=== PATIENT | female | born 1935 | race African-American/Black ===

== ENCOUNTER 2020-03-20 12:36 | Inpatient (IN) | payer MEDICARE, MEDICAID ==
[~2020-03-20] VITALS: Ht 160 cm; Wt 67.1 kg
[2020-03-20 12:40] VITALS: BP 129/75
[2020-03-20] MEDS ORDERED: Azithromycin 500 MG in NS 275 ML IV ONE (13:00)
[2020-03-20] MEDS ORDERED: cefTRIAXone 1 GM in NS 55 ML IV ONE (13:30)
[2020-03-20] MEDS ORDERED: Ipratropium 0.02% Inh Soln 2.5ml UD HHN ONE (13:30)
[2020-03-20] MEDS ORDERED: Vancomycin 1 GM in NS 275 ML IVPB ONE (13:30)
[2020-03-20] MEDS ORDERED: dexAMETHasone 10mg/ml Inj IV ONE (13:30)
[2020-03-20 13:46] LABS: HEMATOCRIT 38.8 % (37.0-47.0); HEMOGLOBIN 12.4 G/DL (12.0-16.0); MEAN CORPUSCULAR VOLUME 98 FL (80-99); PLATELET COUNT 262 K/UL (150-450); RED BLOOD COUNT 3.96 M/UL (4.20-5.40); RED CELL DISTRIBUTION WIDTH 14.4 % (11.6-14.8); WHITE BLOOD COUNT 17.9 K/UL (4.8-10.8)
--- NOTE | 2020-03-20 13:53 | Emergency Room Report ---
History of Present Illness General Chief Complaint: Dyspnea/Respdistress Source: Patient, EMS Present Illness HPI Patient brought via paramedics for hypoxia. Her O2 saturation was 90% and when she was placed on a nonrebreather mask it went up to 97% patient denies fevers or chills. She is a history of asthma. She has been wheezing. She denies nausea but vomited 1 time in the emergency department. She denies chest pain or pain throughout her body. She has been coughing up phlegm but there is been no color. Patient is unaware of exposure to Covid positive contacts but she is at a detention facility. No sore throat, palpitations, diarrhea, dysuria, joint pain, anxiety, visual changes, dizziness, headache. Patient states she is unable to urinate. Medical problems from detention facility records: Gout, hypertension, diabetes. As above she says she has asthma although it is listed as COPD. Allergies: Coded Allergies: PENICILLINS (Verified Allergy, Unknown, 03/20/20) RIFAXIMIN (Verified Allergy, Unknown, 03/20/20) SHELLFISH DERIVED (Verified Allergy, Unknown, 03/20/20) COVID-19 Screening Contact w/high risk pt: No Experienced COVID-19 symptoms?: No COVID-19 Testing performed WASH TANK TENDER: No Patient History Past Medical History: see triage record, old chart reviewed, asthma Social History: Denies: smoking Social History Narrative longterm facility DNR Reviewed Nursing Documentation: PMH: Agreed; PSxH: Agreed Nursing Documentation-PMH Hx Hypertension: Yes Hx Diabetes: Yes Review of Systems All Other Systems: negative except mentioned in HPI Physical Exam Vital Signs Date Time Temp Pulse Resp B/P (MAP) Pulse Ox O2 Delivery O2 Flow Rate FiO2 03/20/20 12:36 98.2 110 22 128/65 (86) 96 Simple Mask 10.0 Sp02 EP Interpretation: reviewed, abnormal - Interpreted as low by me General Appearance: alert, non-toxic, mild distress, Chronically Ill Head: normocephalic, atraumatic Eyes: bilateral eye normal inspection, bilateral eye PERRL, bilateral eye EOMI ENT: moist mucus membranes Neck: full range of motion, supple, no meningismus Respiratory: no retraction, rales, wheezing Cardiovascular #1: no edema, tachycardia Cardiovascular #2: 2+ radial (R) Gastrointestinal: non tender, soft, decreased bowel sounds Genitourinary: no CVA tenderness Musculoskeletal: back normal, no calf tenderness Neurologic: oriented - X2, DTRs symmetric, sensory intact, motor weakness - Generalized Psychiatric: mood/affect normal Skin: no rash, warm/dry Procedures Critical Care Time Critical Care Time Total Critical Care Time: 45 min bedside evaluation and treatment excludes procedures (EKG). Reason for critical care: hypoxia, sepsis, bronchospasm, repeat evaluations Possible complications: hypotension, hypertension, DE, shock, arrhythmias, metabolic acidosis, end organ damage, respiratory failure. Interventions: fluids, oxygen, albuterol/atrovent, antibiotics, repeat evaluations, repeat fluid administration Course: Patient presents with hypoxia and wheezing. Fluids and antibiotics ordered. Covid neg and breathing treatments administered with improvement. Elevated lactate. Rebolus. Patient reevaluated and improved after breathing treatments. Still requiring oxygen. Vital signs without hypotension. Contacted admitting physician. Patient improved and admitted to the hospital. Elevated lactate. Fluid bolus ordered. Antibiotics broadened by admitting instructional systems design consultant. Consultations: nursing staff, EMS, respiratory therapy Performed by: Dr. Quiros Tolerated well condition = serious Medical Decision Making Diagnostic Impression: Primary Impression: Hypoxia Additional Impressions: Bronchospasm Sepsis Qualified Codes: A41.9 - Sepsis, unspecified organism; R65.20 - Severe sepsis without septic shock UTI (urinary tract infection) Qualified Codes: N39.0 - Urinary tract infection, site not specified Elevated lactic acid level ER Course Patient brought by EMS for hypoxia and respiratory distress. Differential includes acute myocardial infarction, COVID-19, pneumonia, sepsis, other occult infection, pulmonary embolus, exacerbation of asthma and COPD amongst others. Complex patient with comorbidities. Evaluation with EKG, chest x-ray and labs. Patient treated with IV hydration, oxygen and breathing treatments ordered as the patient is wheezing. Covid testing performed. Due to hypoxia and physical exam antibiotics ordered. In addition dexamethasone ordered. EKG sinus tachycardia with right bundle branch block no acute injury. Chest x- ray dense right-sided infiltrate with effusion. Labs with elevated white count and left shift. CMP with elevated glucose. Urinalysis with too numerous to count white blood cells. Found Lactic acid 5. Rest of 30 ml/kg bolus given. Antibiotics already ordered. Patient also with UTI. Sepsis re-evaluation 1520 Improved. Called to have reflex lactate sent. Lactate increased. Fluid bolus ordered. Laboratory Tests Test 03/20/20 13:30 03/20/20 14:00 03/20/20 21:55 White Blood Count 17.9 K/UL (4.8-10.8) H Red Blood Count 3.96 M/UL (4.20-5.40) L Hemoglobin 12.4 G/DL (12.0-16.0) Hematocrit 38.8 % (37.0-47.0) Mean Corpuscular Volume 98 FL (80-99) Mean Corpuscular Hemoglobin 31.4 PG (27.0-31.0) H Mean Corpuscular Hemoglobin Concent 32.0 G/DL (32.0-36.0) Red Cell Distribution Width 14.4 % (11.6-14.8) Platelet Count 262 K/UL (150-450) Mean Platelet Volume 7.5 FL (6.5-10.1) Neutrophils (%) (Auto) % (45.0-75.0) Lymphocytes (%) (Auto) % (20.0-45.0) Monocytes (%) (Auto) % (1.0-10.0) Eosinophils (%) (Auto) % (0.0-3.0) Basophils (%) (Auto) % (0.0-2.0) Differential Total Cells Counted 100 Neutrophils % (Manual) 83 % (45-75) H Lymphocytes % (Manual) 4 % (20-45) L Monocytes % (Manual) 8 % (1-10) Eosinophils % (Manual) 0 % (0-3) Basophils % (Manual) 0 % (0-2) Band Neutrophils 5 % (0-8) Platelet Estimate Adequate Platelet Morphology Normal Red Blood Cell Morphology Normal Prothrombin Time 11.4 SEC (9.30-11.50) Prothrombin Time INR 1.0 (0.9-1.1) Activated Partial Thromboplast Time 26 SEC (23-33) D-Dimer 0.53 mg/L FEU (0.00-0.49) H Sodium Level 140 MMOL/L (136-145) Potassium Level 4.2 MMOL/L (3.5-5.1) Chloride Level 101 MMOL/L (98-107) Carbon Dioxide Level 30 MMOL/L (21-32) Anion Gap 10 mmol/L (5-15) Blood Urea Nitrogen 18 mg/dL (7-18) Creatinine 0.7 MG/DL (0.55-1.30) Estimated Glomerular Filtration Rate > 60 mL/min (>60) Glucose Level 208 MG/DL (74-106) H Lactic Acid Level 5.00 mmol/L (0.4-2.0) H 6.90 mmol/L (0.4-2.0) H Calcium Level 9.9 MG/DL (8.5-10.1) Magnesium Level 1.5 MG/DL (1.8-2.4) L Ferritin 1127 NG/ML (8-388) H Total Bilirubin 0.4 MG/DL (0.2-1.0) Aspartate Amino Transferase (AST) 20 U/L (15-37) Alanine Aminotransferase (ALT) 41 U/L (12-78) Alkaline Phosphatase 73 U/L (46-116) Lactate Dehydrogenase 154 U/L (81-234) Total Creatine Kinase 12 U/L (26-308) L Troponin I 0.000 ng/mL (0.000-0.056) C-Reactive Protein, Quantitative 3.7 mg/dL (0.00-0.90) H Pro-B-Type Natriuretic Peptide 102 pg/mL (0-125) Total Protein 7.4 G/DL (6.4-8.2) Albumin 3.3 G/DL (3.4-5.0) L Globulin 4.1 g/dL Albumin/Globulin Ratio 0.8 (1.0-2.7) L Lipase 50 U/L (73-393) L Urine Color Pale yellow Urine Appearance Very cloudy Urine pH 7 (4.5-8.0) Urine Specific Heidrick 1.010 (1.005-1.035) Urine Protein 2+ (NEGATIVE) H Urine Glucose (UA) 1+ (NEGATIVE) H Urine Ketones 2+ (NEGATIVE) H Urine Blood 3+ (NEGATIVE) H Urine Nitrite Negative (NEGATIVE) Urine Bilirubin Negative (NEGATIVE) Urine Urobilinogen Normal MG/DL (0.0-1.0) Urine Leukocyte Esterase 3+ (NEGATIVE) H Urine RBC Tntc /HPF (0 - 2) H Urine WBC Tntc /HPF (0 - 2) H Urine Squamous Epithelial Cells None /LPF (NONE/OCC) Urine Bacteria Many /HPF (NONE) H Microbiology Date/Time Source Procedure Growth Status 03/20/20 12:35 Nasopharynx SARS-CoV-2 RdRp Gene Assay - Final Complete EKG Diagnostic Results Rate: tachycardiac Rhythm: NSR ST Segments: no acute changes - Right bundle branch block Rhythm Strip Diag. Results EP Interpretation: yes Rhythm: no PVC's, no ectopy, other - Sinus tachycardia Chest X-Ray Diagnostic Results Chest X-Ray Diagnostic Results : Chest X-Ray Ordered: Yes # of Views/Limited/Complete: 1 View Indication: Shortness of Breath EP Interpretation: Yes Interpretation: no effusion, no pneumothorax, other - Elevated right hemidiaphragm and probable bilateral infiltrates with R effusion Impression: Other Electronically Signed by: Electronically signed by Piotr Quiros MD Last Vital Signs Date Time Temp Pulse Resp B/P (MAP) Pulse Ox O2 Delivery O2 Flow Rate FiO2 03/20/20 18:00 108 18 137/78 100 Nasal Cannula 4.0 03/20/20 14:07 100 03/20/20 12:40 98.6 Status: improved Disposition: ADMITTED INPATIENT Condition: Serious Referrals: NON PHYSICIAN (PCP) Piotr Quiros MD Mar 20, 2020 13:53
[2020-03-20] MEDS: Albuterol ud Inhalation HHN PRN ×2 (13:58→13:59)
--- NOTE | 2020-03-20 14:02 | Diagnostic Imaging Report ---
EXAM: XR Chest, 1 View CLINICAL HISTORY: DYSPNEA TECHNIQUE: Frontal view of the chest. COMPARISON: No relevant prior studies available. FINDINGS: Lungs: Opacification of large portion of the right hemithorax. Rightward deviation of the mediastinum and heart likely due to volume loss of the right lung. Interstitial and mild airspace opacities bilaterally. More focal round opacity in the left upper lung. Pleural space: Large right pleural effusion. No pneumothorax. Heart: Unremarkable. No cardiomegaly. Mediastinum: See above. Bones/joints: Evidence of right shoulder surgery. IMPRESSION: 1. Opacification of large portion of the right hemithorax. Rightward deviation of the mediastinum and heart likely due to volume loss of the right lung. Large right pleural effusion. 2. Interstitial and mild airspace opacities bilaterally. More focal round opacity in the left upper lung, cannot exclude mass. Consider CT chest.
[2020-03-20 14:18] LABS: ANION GAP 10 mmol/L (5-15); BLOOD UREA NITROGEN 18 mg/dL (7-18); CALCIUM 9.9 MG/DL (8.5-10.1); CARBON DIOXIDE 30 MMOL/L (21-32); CHLORIDE 101 MMOL/L (98-107); CREATININE 0.7 MG/DL (0.55-1.30); POTASSIUM 4.2 MMOL/L (3.5-5.1); SODIUM 140 MMOL/L (136-145)
[2020-03-20 14:23] LABS: ALANINE AMINOTRANSFERASE 41 U/L (12-78); ALBUMIN 3.3 G/DL (3.4-5.0); ALBUMIN/GLOBULIN RATIO 0.8 (1.0-2.7); ALKALINE PHOSPHATASE 73 U/L (46-116); ASPARTATE AMINO TRANSFERASE 20 U/L (15-37); BILIRUBIN,TOTAL 0.4 MG/DL (0.2-1.0); CREATINE KINASE 12 U/L (26-308); FERRITIN 1127 NG/ML (8-388); LACTATE DEHYDROGENASE 154 U/L (81-234)
[2020-03-20 14:41] LABS: APPEARANCE,URINE VERY CLOUDY; BILIRUBIN, URINE NEGATIVE (NEGATIVE); COLOR,URINE PALE YELLOW; GLUCOSE, URINE (UA) 1+ (NEGATIVE); KETONES,URINE 2+ (NEGATIVE); LEUKOCYTE ESTERASE ,URINE 3+ (NEGATIVE); NITRITE,URINE NEGATIVE (NEGATIVE); PH,URINE 7 (4.5-8.0); PROTEIN,URINE 2+ (NEGATIVE); UROBILINOGEN,URINE NORMAL MG/DL (0.0-1.0)
[2020-03-20] MEDS ORDERED: ACETAMINOPHEN325 M1 ORAL (15:13)
[2020-03-20] MEDS ORDERED: AMLODIPINE BESY10 MG ORAL (15:13)
[2020-03-20] MEDS ORDERED: GLUCOPHAGE XR750 MG ORAL (15:13)
[2020-03-20] MEDS ORDERED: IPOL IJ (15:13)
[2020-03-20] MEDS ORDERED: COLCRYS0.6 M1 PO (15:13)
[2020-03-20] MEDS ORDERED: DOCUSATE SODIU100 MG ORAL (15:13)
[2020-03-20] MEDS ORDERED: MIRTAZAPINE7.5 MG ORAL (15:25)
[2020-03-20] MEDS ORDERED: MAGNESIUM OXID400 M1 ORAL (15:25)
[2020-03-20] MEDS ORDERED: LEVOTHYROXINE125 MCG ORAL (15:25)
[2020-03-20] MEDS ORDERED: LEVOFLOXACIN250 MG ORAL (15:25)
[2020-03-20] MEDS ORDERED: LANTUS SOL100 UNIT/1 SUBQ (15:25)
[2020-03-20] MEDS ORDERED: MULTIVITAMINS1 EAC8 ORAL (15:25)
[2020-03-20] MEDS ORDERED: Miralax 17gm pkt ORAL PRN (16:45)
[2020-03-20] MEDS ORDERED: LORazepam Inj 2mg/ml 1ml IV PRN (16:45)
[2020-03-20] MEDS ORDERED: Promethazine/Codeine 5ml UD ORAL PRN (16:45)
[2020-03-20 18:00] VITALS: BP 137/78
[2020-03-20] MEDS ORDERED: Heparin 5000 units/ml inj SUBQ SCH (21:00)
[2020-03-20 22:00] VITALS: BP 128/70
[2020-03-20] MEDS ORDERED: Vancomycin 1 GM in D5W 275 ML IV SCH (23:00)
[2020-03-21] VITALS (7 sets, daily range): BP systolic 125–137; BP diastolic 60–82
[2020-03-21] MEDS: NovoLOG Insulin Flexpen SUBQ SCH ×4 (07:00→20:57)
[2020-03-21] MEDS: Vancomycin 500mg/D5W 110ml IVPB SCH ×4 (08:26→18:00)
[2020-03-21] MEDS: Cefepime HCl 2 GM in D5W 110 ML IV SCH (09:12)
[2020-03-21] MEDS: Albuterol/Ipratropium 3ml neb HHN PRN ×2 (12:56→23:38)
--- NOTE | 2020-03-21 16:35 | Consultation ---
History of Present Illness General Date patient seen: Mar 21, 2020 Chief Complaint: Dyspnea/Respdistress Present Illness HPI 85 year old female with hx of dementia, HTN, COPD, DM, [facility] from [facility] for hypoxia. Her O2 saturation was 90% on RA and She has been wheezing. She vomited 1 time in the emergency department. She denies chest pain or pain throughout her body. She has been coughing up phlegm. Her CXR showed extensive opacification at [facility]. She is admitted for further management. Allergies: Coded Allergies: PENICILLINS (Verified Allergy, Unknown, 03/20/20) RIFAXIMIN (Verified Allergy, Unknown, 03/20/20) SHELLFISH DERIVED (Verified Allergy, Unknown, 03/20/20) Medication History Scheduled Amlodipine Besylate* (Amlodipine Besylate*), 10 MG ORAL DAILY, (Reported) Docusate Sodium* (Docusate Sodium*), 200 MG ORAL TWICE A DAY, (Reported) Insulin Glargine (Lantus), 12 SUBQ BEDTIME, (Reported) Levofloxacin (Levofloxacin*), 250 MG ORAL DAILY, (Reported) Levothyroxine Sodium* (Levothyroxine Sodium*), 50 MCG ORAL DAILY, (Reported) Magnesium Oxide (Magnesium Oxide), 400 MG ORAL DAILY, (Reported) Mirtazapine* (Mirtazapine*), 7.5 MG ORAL BEDTIME, (Reported) Multivitamin With Minerals (Multivitamins With Minerals*), 1 TAB ORAL DAILY, (Reported) Poliomyelitis Vaccine, Killed (Ipol), 5 ML IJ Q6HR, (Reported) Scheduled PRN Acetaminophen* (Acetaminophen 325MG Tablet*), 650 MG ORAL Q6H PRN for fever/pain, (Reported) Metformin Hcl (Glucophage Xr), 750 MG ORAL TWICE A DAY PRN for DM, (Reported) Miscellaneous Medications Colchicine (Colcrys), 0.6 MG PO, (Reported) Patient History Healthcare decision maker N Resuscitation status Advanced Directive on File Past Medical/Surgical History Past Medical/Surgical History: (1) History of hypertension (2) Diabetes mellitus (3) Gout (4) Hypothyroidism (5) COPD (chronic obstructive pulmonary disease) (6) Alzheimer's dementia Review of Systems All Other Systems: negative except mentioned in HPI Physical Exam General Appearance: thin Lines, tubes and drains: peripheral HEENT: normocephalic, atraumatic Neck: non-tender, normal alignment Respiratory/Chest: rhonchi - left, rhonchi - right Abdomen: normal bowel sounds, non tender Genitourinary/Rectal: normal genital exam Extremities: normal range of motion Last 24 Hour Vital Signs Date Time Temp Pulse Resp B/P (MAP) Pulse Ox O2 Delivery O2 Flow Rate FiO2 03/21/20 12:58 92 29 100 Room Air 21 102 23 100 03/21/20 10:29 98.0 87 19 132/82 98 Nasal Cannula 4.0 03/21/20 09:24 Nasal Cannula 4.0 03/21/20 09:12 97 134/87 03/21/20 07:24 98.0 94 16 137/75 99 Nasal Cannula 4.0 03/21/20 02:00 98.0 96 18 132/74 100 Nasal Cannula 4.0 100 03/20/20 22:00 98.4 105 18 128/70 98 Nasal Cannula 4.0 100 03/20/20 18:00 108 18 137/78 100 Nasal Cannula 4.0 Intake and Output 03/20/20 03/21/20 19:00 07:00 Intake Total 1000 ml Balance 1000 ml Intake IV Total 1000 ml Laboratory Tests Test 03/20/20 21:55 03/21/20 07:23 Lactic Acid Level 6.90 mmol/L (0.4-2.0) H POC Whole Blood Glucose 116 MG/DL (74-106) H Height (Feet): 5 Height (Inches): 3.00 Weight (Pounds): 148 Medications Current Medications Medications (Trade) Dose Ordered Sig/Federico Route PRN Reason Start Time Stop Time Status Last Admin Dose Admin Acetaminophen (Tylenol) 650 mg Q4H PRN ORAL FEVER 03/20/20 16:45 04/19/20 16:44 Albuterol/ Ipratropium (Albuterol/ Ipratropium) 3 ml Q4H PRN HHN Shortness of Breath 03/20/20 16:45 03/25/20 16:44 03/21/20 12:56 Amlodipine Besylate (Norvasc) 10 mg DAILY ORAL 03/21/20 09:00 04/20/20 08:59 03/21/20 09:12 Cefepime HCl 2 gm/ Dextrose 110 ml @ 220 mls/hr Q24H IV 03/21/20 09:00 03/28/20 08:59 03/21/20 09:12 Dextrose (Dextrose 50%) 25 ml Q30M PRN IV Hypoglycemia 03/20/20 16:45 06/18/20 16:44 Dextrose (Dextrose 50%) 50 ml Q30M PRN IV Hypoglycemia 03/20/20 16:45 06/18/20 16:44 Heparin Sodium (Porcine) (Heparin 5000 units/ml) 5,000 units EVERY 12 HOURS SUBQ 03/20/20 21:00 05/04/20 20:59 03/21/20 08:37 Insulin Aspart (NovoLOG) BEFORE MEALS AND HS SUBQ 03/21/20 06:30 06/19/20 06:29 Levothyroxine Sodium (Synthroid) 50 mcg ACBREAKFAST ORAL 03/21/20 06:30 04/20/20 06:29 03/21/20 08:17 Lorazepam (Ativan 2mg/ml 1ml) 2 mg Q2H PRN IV For Anxiety 03/20/20 16:45 03/27/20 16:44 Mirtazapine (Remeron) 7.5 mg BEDTIME ORAL 03/20/20 21:00 06/18/20 20:59 Ondansetron HCl (Zofran) 4 mg Q6H PRN IVP Nausea & Vomiting 03/20/20 16:45 04/19/20 16:44 Polyethylene Glycol (Miralax) 17 gm DAILYPRN PRN ORAL Constipation 03/20/20 16:45 04/19/20 16:44 Promethazine HCl/ Codeine (Phenergan with Codeine) 5 ml Q4H PRN ORAL For Cough 03/20/20 16:45 04/19/20 16:44 Sodium Chloride 1,000 ml @ 50 mls/hr Q20H IV 03/20/20 23:00 04/19/20 22:59 03/21/20 04:47 Sodium Chloride 1,000 ml @ 150 mls/hr Q6H40M IV 03/21/20 01:45 04/20/20 01:44 03/21/20 15:27 Sodium Chloride 1,000 ml @ 200 mls/hr Q5H IV 03/20/20 15:30 04/19/20 15:29 03/21/20 11:39 Vancomycin HCl (Vanco pharmacy to dose) 1 ea DAILY PRN MISC . 03/21/20 10:45 04/20/20 10:44 Vancomycin HCl 500 mg/Dextrose 110 ml @ 110 mls/hr Q12H IVPB 03/21/20 06:00 03/26/20 05:59 03/21/20 08:26 Assessment/Plan Problem List: (1) Nosocomial pneumonia ICD Codes: J18.9 - Pneumonia, unspecified organism; Y95 - Nosocomial condition SNOMED: 665441297 (2) Sepsis ICD Codes: A41.9 - Sepsis, unspecified organism SNOMED: 05425209 Qualifiers: Qualified Codes: A41.9 - Sepsis, unspecified organism; R65.20 - Severe sepsis without septic shock (3) UTI (urinary tract infection) ICD Codes: N39.0 - Urinary tract infection, site not specified SNOMED: 56381666 Qualifiers: Qualified Codes: N39.0 - Urinary tract infection, site not specified (4) History of hypertension ICD Codes: Z86.79 - Personal history of other diseases of the circulatory system SNOMED: 889395075 (5) Diabetes mellitus ICD Codes: E11.9 - Type 2 diabetes mellitus without complications SNOMED: 28002365 (6) Gout ICD Codes: M10.9 - Gout, unspecified SNOMED: 77546919 (7) Hypothyroidism ICD Codes: E03.9 - Hypothyroidism, unspecified SNOMED: 22330944 (8) Alzheimer's dementia ICD Codes: G30.9 - Alzheimer's disease, unspecified; F02.80 - Dementia in other diseases classified elsewhere without behavioral disturbance SNOMED: 99764012 (9) COPD (chronic obstructive pulmonary disease) ICD Codes: J44.9 - Chronic obstructive pulmonary disease, unspecified SNOMED: 83071620 Assessment/Plan: respiratory isolation chest PT repeat CXR in am broad spectrum antibiotics check sputum resume routine meds symptomatic treatment DVT prophylaxis Pt should be DNR considering severity of her pneumonia and her age. Jessenia Biggs MD Mar 21, 2020 16:35
--- NOTE | 2020-03-21 19:32 | History & Physical ---
History and Physical History & Physicial Dictated for Int Med-DR Munguia no.[id number]. Peterson Palacios MD Mar 21, 2020 19:32
--- NOTE | 2020-03-21 20:14 | History and Physical Report ---
DATE OF ADMISSION: 03/20/2020 CHIEF COMPLAINT: The patient is an 85-year-old female who presents with a chief complaint of shortness of breath. HISTORY OF PRESENT ILLNESS: The patient is a resident of [facility]. The patient herself is unable to contribute much to the history and physical. Most of the history and physical is obtained from the medical record. According to staff at [facility], the patient has a history of COPD. The patient was found to be wheezing on March 20, 2020. Oxygen saturation was found to be 90% on room air. The patient was placed on 100% non-rebreather. The patient was transported to [facility] for evaluation. The patient is admitted with hypoxia and respiratory distress to rule out COVID-19 pneumonia. REVIEW OF SYSTEMS: Unable to assess secondary to the patient's mental status. PAST MEDICAL HISTORY: Significant for: 1. Chronic obstructive pulmonary disease. 2. Hypertension. 3. Diabetes type 2. 4. Gout. PAST SURGICAL HISTORY: Unknown. CURRENT MEDICATIONS: 1. Amlodipine 10 mg one tablet p.o. daily. 2. Colchicine 0.6 mg p.o. daily. 3. Lantus insulin 12 units subcutaneously nightly. 4. Levothyroxine 50 mcg one tablet p.o. daily. 5. Magnesium 400 mg one tablet p.o. daily. 6. Metformin 750 mg p.o. twice daily. 7. Mirtazapine 7.5 mg p.o. nightly. ALLERGIES: Penicillin, rifaximin, and shellfish. SOCIAL HISTORY: The patient is single. The patient denies tobacco or alcohol use. PHYSICAL EXAMINATION: VITAL SIGNS: Temperature 98.2, respirations 22, pulse 110, blood pressure 128/65. Pulse oximetry 96% on 10 liters on simple mask. GENERAL: The patient is a well-developed and well-nourished female, in no apparent distress. HEENT: Eyes, pupils are equal and responsive to light and accommodation. Extraocular movements are intact. NECK: Supple without lymphadenopathy. CHEST: Diffuse wheezes bilaterally with decreased breath sounds in the right lower base, otherwise without wheezes or rales. CARDIOVASCULAR: Regular rhythm and rate. S1, S2 normal without murmurs, rubs, or gallops. ABDOMEN: Soft, nontender, nondistended. Positive bowel sounds. No evidence of hepatosplenomegaly. Currently, no rebound or guarding noted. EXTREMITIES: Negative for clubbing, cyanosis, or edema. RECTAL/GENITAL: Not performed. NEUROLOGIC: Cranial nerves II through XII are grossly intact without focal deficits. IMAGING: Chest x-ray was reported as opacification of the right hemithorax with bilateral opacities. There is a large round opacity in the left upper lung consistent with lung mass. LABORATORY STUDIES: WBC 17.9, hemoglobin 12.5, hematocrit 38.8, platelets 262,000. Sodium 140, potassium 4.2, chloride 101, CO2 30, BUN 18, creatinine 0.7. Glucose 208. Urinalysis showed 2+ protein, 1+ glucose, 2+ ketones, 3+ blood, 3+ leukocyte esterase, rbc's too numerous to count, wbc's too numerous to count. A COVID-19 rapid test was reported as negative. ASSESSMENT: This is an 85-year-old female with: 1. Bilateral pneumonia. 2. Probable left upper lung mass. 3. Respiratory failure. 4. Diabetes type 2. 5. Hypertension. TREATMENT: 1. Pneumonia/respiratory failure. A Pulmonary consultation has been obtained with Dr. Jessenia Biggs. The patient has been placed empirically on vancomycin and cefepime. A CT scan of the abdomen is pending. Follow recommendations of Pulmonary. 2. Diabetes. The patient has been placed on NovoLog sliding scale. 3. Hypertension, continue amlodipine as above. 4. Hypothyroidism. Continue Levoxyl as above. 5. Major depression. Continue mirtazapine as above. Peterson Palacios M.D. DR: ELSA JOB#: [id number] CC:
[2020-03-21] MEDS: Heparin 5000 units/ml inj SUBQ SCH (21:01)
[2020-03-22] VITALS: BP 140/65
[2020-03-22 04:00] VITALS: BP 143/68
[2020-03-22] MEDS: NovoLOG Insulin Flexpen SUBQ SCH ×4 (06:06→21:00)
[2020-03-22] MEDS: Vancomycin 500mg/D5W 110ml IVPB SCH ×4 (06:06→17:42)
--- NOTE | 2020-03-22 07:52 | Consultation ---
History of Present Illness General Date patient seen: Mar 22, 2020 Time patient seen: 11:58 Chief Complaint: Dyspnea/Respdistress Referring physician: Dr. Palacios Reason for Consultation: Pneumonia Present Illness HPI 85yo F who presents from SNF with hypoxia and cough, found to have leukocytosis and hypoxia for which ID is consulted. Per notes, pt was found to be wheezing on 03/20, was satting 90% on RA, then came to ED. Pt is pleasant, awake in bed, hoarse voice. Denies any fevers/chills, NVD, abd pain or other complaint. Doing well. Allergies: Coded Allergies: PENICILLINS (Verified Allergy, Unknown, 03/20/20) RIFAXIMIN (Verified Allergy, Unknown, 03/20/20) SHELLFISH DERIVED (Verified Allergy, Unknown, 03/20/20) Medication History Scheduled Amlodipine Besylate* (Amlodipine Besylate*), 10 MG ORAL DAILY, (Reported) Docusate Sodium* (Docusate Sodium*), 200 MG ORAL TWICE A DAY, (Reported) Insulin Glargine (Lantus), 12 SUBQ BEDTIME, (Reported) Levofloxacin (Levofloxacin*), 250 MG ORAL DAILY, (Reported) Levothyroxine Sodium* (Levothyroxine Sodium*), 50 MCG ORAL DAILY, (Reported) Magnesium Oxide (Magnesium Oxide), 400 MG ORAL DAILY, (Reported) Mirtazapine* (Mirtazapine*), 7.5 MG ORAL BEDTIME, (Reported) Multivitamin With Minerals (Multivitamins With Minerals*), 1 TAB ORAL DAILY, (Reported) Poliomyelitis Vaccine, Killed (Ipol), 5 ML IJ Q6HR, (Reported) Scheduled PRN Acetaminophen* (Acetaminophen 325MG Tablet*), 650 MG ORAL Q6H PRN for fever/pain, (Reported) Metformin Hcl (Glucophage Xr), 750 MG ORAL TWICE A DAY PRN for DM, (Reported) Miscellaneous Medications Colchicine (Colcrys), 0.6 MG PO, (Reported) Patient History Limited by: medical condition Healthcare decision maker N Resuscitation status Advanced Directive on File Review of Systems ROS Narrative 10-point ROS neg except as noted in HPI Physical Exam Physical Exam Narrative Gen: NAD in bed HEENT: NCAT Pulm: BL chest rise on NC Abd: Soft, NTND Ext: No c/c/e Neuro: Awake Last 24 Hour Vital Signs Date Time Temp Pulse Resp B/P (MAP) Pulse Ox O2 Delivery O2 Flow Rate FiO2 03/22/20 04:00 98 03/22/20 04:00 97.8 105 24 143/68 (93) 91 03/22/20 00:00 102 03/22/20 00:00 97.6 106 24 140/65 (90) 100 03/21/20 23:48 98 Nasal Cannula 3.0 32 03/21/20 23:38 105 18 98 Nasal Cannula 3.0 32 103 20 88 03/21/20 23:38 103 20 98 Room Air 21 03/21/20 21:00 Room Air 03/21/20 20:00 102 03/21/20 20:00 98.2 70 20 131/60 (83) 100 03/21/20 17:05 98.6 99 19 126/76 99 Room Air 03/21/20 16:58 98.0 85 20 125/71 97 Nasal Cannula 4.0 03/21/20 14:40 98.0 91 18 126/78 95 Nasal Cannula 4.0 03/21/20 14:30 98.0 82 17 130/82 96 Nasal Cannula 4.0 03/21/20 12:58 92 29 100 Room Air 21 102 23 100 03/21/20 10:29 98.0 87 19 132/82 98 Nasal Cannula 4.0 03/21/20 09:24 Nasal Cannula 4.0 03/21/20 09:12 97 134/87 l Intake and Output 03/21/20 03/22/20 19:00 07:00 Intake Total 240 ml Output Total 3350 ml 1550 ml Balance -3350 ml -1310 ml Intake Oral 240 ml Output Urine Total 3350 ml 1550 ml Laboratory Tests Test 03/21/20 20:52 03/22/20 06:00 POC Whole Blood Glucose Pending Sodium Level Pending Potassium Level Pending Chloride Level Pending Carbon Dioxide Level Pending Blood Urea Nitrogen Pending Creatinine Pending Estimat Glomerular Filtration Rate Pending Glucose Level Pending Calcium Level Pending Height (Feet): 5 Height (Inches): 3.00 Weight (Pounds): 148 Medications Current Medications Medications (Trade) Dose Ordered Sig/Federico Route PRN Reason Start Time Stop Time Status Last Admin Dose Admin Acetaminophen (Tylenol) 650 mg Q4H PRN ORAL FEVER 03/20/20 16:45 04/19/20 16:44 Albuterol/ Ipratropium (Albuterol/ Ipratropium) 3 ml Q4H PRN HHN Shortness of Breath 03/20/20 16:45 03/25/20 16:44 03/21/20 23:38 Amlodipine Besylate (Norvasc) 10 mg DAILY ORAL 03/21/20 09:00 04/20/20 08:59 03/21/20 09:12 Cefepime HCl 2 gm/ Dextrose 110 ml @ 220 mls/hr Q24H IV 03/21/20 09:00 03/28/20 08:59 03/21/20 09:12 Dextrose (Dextrose 50%) 25 ml Q30M PRN IV Hypoglycemia 03/20/20 16:45 06/18/20 16:44 Dextrose (Dextrose 50%) 50 ml Q30M PRN IV Hypoglycemia 03/20/20 16:45 06/18/20 16:44 Heparin Sodium (Porcine) (Heparin 5000 units/ml) 5,000 units EVERY 12 HOURS SUBQ 03/21/20 21:00 05/05/20 20:59 03/21/20 21:01 Insulin Aspart (NovoLOG) BEFORE MEALS AND HS SUBQ 03/21/20 06:30 06/19/20 06:29 Levothyroxine Sodium (Synthroid) 50 mcg ACBREAKFAST ORAL 03/21/20 06:30 04/20/20 06:29 03/21/20 08:17 Lorazepam (Ativan 2mg/ml 1ml) 2 mg Q2H PRN IV For Anxiety 03/20/20 16:45 03/27/20 16:44 Mirtazapine (Remeron) 7.5 mg BEDTIME ORAL 03/20/20 21:00 06/18/20 20:59 03/21/20 20:57 Ondansetron HCl (Zofran) 4 mg Q6H PRN IVP Nausea & Vomiting 03/20/20 16:45 04/19/20 16:44 Polyethylene Glycol (Miralax) 17 gm DAILYPRN PRN ORAL Constipation 03/20/20 16:45 04/19/20 16:44 Promethazine HCl/ Codeine (Phenergan with Codeine) 5 ml Q4H PRN ORAL For Cough 03/20/20 16:45 04/19/20 16:44 Sodium Chloride 1,000 ml @ 50 mls/hr Q20H IV 03/20/20 23:00 04/19/20 22:59 03/21/20 04:47 Vancomycin HCl (Vanco pharmacy to dose) 1 ea DAILY PRN MISC . 03/21/20 10:45 04/20/20 10:44 Vancomycin HCl 500 mg/Dextrose 110 ml @ 110 mls/hr Q12H IVPB 03/21/20 06:00 03/26/20 05:59 03/22/20 06:06 Assessment/Plan Assessment/Plan: 85yo F with: Afebrile Leukocytosis to 17 Lymphopenia Hypoxia Pneumonia Cavitary lung lesions w/ ?fungal ball R/o COVID 03/20 BCx NTD COVID rapid neg UA positive, UCx +E. coli (S-CTX) and Strep spp CXR: 1. Opacification of large portion of the right hemithorax. Rightward deviation of the mediastinum and heart likely due to volume loss of the right lung. Large right pleural effusion. 2. Interstitial and mild airspace opacities bilaterally. More focal round opacity in the left upper lung, cannot exclude mass. Consider CT chest. MRSA nares neg 03/21 CT chest read pending - cavitary lesion w/ ?fungal ball per my read Cr 0.7 PMH: COPD HTN DM2 Gout Plan: Cont empiric cefepime/vanco #2 for now If BCx remain neg, can d/c vanco tomorrow and change cefepime to CTX F/u CT chest final read R/o TB - AFB sputum x3 (collected 8 hrs apart) & MTB PCR sputum x2 Sputum cx Fungal sputum cx HIV QuantGold Cocci Crypto Histo B-D-glucan Aspergillus EIA COVID PCR Trend WBC, CBC ordered Monitor CBC/CMP Monitor temp curve, hemodynamics Monitor resp status D/w RN & Dr. Biggs Thank you for this consult. [facility] will continue to follow. Celsa Ferguson M.D. Mar 22, 2020 07:52
[2020-03-22 07:56] LABS: ANION GAP 10 mmol/L (5-15); BLOOD UREA NITROGEN 6 mg/dL (7-18); CALCIUM 9.5 MG/DL (8.5-10.1); CARBON DIOXIDE 30 MMOL/L (21-32); CHLORIDE 103 MMOL/L (98-107); CREATININE 0.4 MG/DL (0.55-1.30); POTASSIUM 3.9 MMOL/L (3.5-5.1); SODIUM 142 MMOL/L (136-145)
[2020-03-22 08:00] VITALS: BP 154/75
[2020-03-22 08:09] LABS: BASOPHILS % (AUTO) 1.1 % (0.0-2.0); EOSINOPHILS % (AUTO) 2.6 % (0.0-3.0); HEMATOCRIT 34.3 % (37.0-47.0); HEMOGLOBIN 11.7 G/DL (12.0-16.0); LYMPHOCYTES % (AUTO) 13.6 % (20.0-45.0); MEAN CORPUSCULAR VOLUME 93 FL (80-99); MONOCYTES % (AUTO) 8.8 % (1.0-10.0); NEUTROPHILS % (AUTO) 73.9 % (45.0-75.0); PLATELET COUNT 203 K/UL (150-450); RED BLOOD COUNT 3.71 M/UL (4.20-5.40); RED CELL DISTRIBUTION WIDTH 15.4 % (11.6-14.8); WHITE BLOOD COUNT 10.2 K/UL (4.8-10.8)
[2020-03-22] MEDS ORDERED: Varibar Honey 250ml MC PRN (08:15)
[2020-03-22] MEDS ORDERED: Varibar Thin Liquid powder 148gm MC PRN (08:15)
[2020-03-22] MEDS ORDERED: Varibar Nectar 240ml MC PRN (08:15)
[2020-03-22] MEDS ORDERED: Varibar Pudding 230ml MC PRN (08:15)
[2020-03-22] MEDS: Heparin 5000 units/ml inj SUBQ SCH ×2 (09:22→21:00)
[2020-03-22] MEDS: Cefepime HCl 2 GM in D5W 110 ML IV SCH (10:31)
--- NOTE | 2020-03-22 11:31 | Pulmonology Progress Note ---
Subjective ROS Limited/Unobtainable: Yes Allergies: Coded Allergies: PENICILLINS (Verified Allergy, Unknown, 03/20/20) RIFAXIMIN (Verified Allergy, Unknown, 03/20/20) SHELLFISH DERIVED (Verified Allergy, Unknown, 03/20/20) Objective Last 24 Hour Vital Signs Date Time Temp Pulse Resp B/P (MAP) Pulse Ox O2 Delivery O2 Flow Rate FiO2 03/22/20 09:22 101 154/75 03/22/20 09:00 Room Air 03/22/20 08:04 101 03/22/20 08:00 97.3 110 20 154/75 (101) 93 03/22/20 04:00 98 03/22/20 04:00 97.8 105 24 143/68 (93) 91 03/22/20 00:00 102 03/22/20 00:00 97.6 106 24 140/65 (90) 100 03/21/20 23:48 98 Nasal Cannula 3.0 32 03/21/20 23:38 105 18 98 Nasal Cannula 3.0 32 103 20 88 03/21/20 23:38 103 20 98 Room Air 21 03/21/20 21:00 Room Air 03/21/20 20:00 102 03/21/20 20:00 98.2 70 20 131/60 (83) 100 03/21/20 17:05 98.6 99 19 126/76 99 Room Air 03/21/20 16:58 98.0 85 20 125/71 97 Nasal Cannula 4.0 03/21/20 14:40 98.0 91 18 126/78 95 Nasal Cannula 4.0 03/21/20 14:30 98.0 82 17 130/82 96 Nasal Cannula 4.0 03/21/20 12:58 92 29 100 Room Air 21 102 23 100 Intake and Output 03/21/20 03/22/20 19:00 07:00 Intake Total 240 ml Output Total 3350 ml 1550 ml Balance -3350 ml -1310 ml Intake Oral 240 ml Output Urine Total 3350 ml 1550 ml General Appearance: cachetic HEENT: normocephalic, atraumatic Respiratory: rhonchi - left, rhonchi - right Cardiovascular: normal peripheral pulses, normal rate Abdomen: normal bowel sounds, soft, non tender Genitourinary: normal external genitalia Extremities: no cyanosis Skin: no rash Microbiology Date/Time Source Procedure Growth Status 03/20/20 14:00 Urine,Clean Catch Urine Culture - Preliminary Escherichia Coli Strep Species, Alpha Hemolytic Resulted 03/20/20 13:55 Rectum - Final NO CARBAPENEM-RESISTANT ENTEROBACTERI... Complete 03/20/20 13:55 Rectum VRE Culture - Final NO VANCOMYCIN RESISTANT ENTEROCOCCUS ... Complete 03/20/20 13:55 Nasal Nares MRSA Culture - Final NO METHICILLIN RESISTANT STAPH AUREUS... Complete 03/20/20 13:30 Blood Blood Culture - Preliminary NO GROWTH AFTER 24 HOURS Resulted 03/20/20 13:15 Blood Blood Culture - Preliminary NO GROWTH AFTER 24 HOURS Resulted 03/20/20 12:35 Nasopharynx SARS-CoV-2 RdRp Gene Assay - Final Complete Laboratory Tests 03/21/20 20:52: POC Whole Blood Glucose [Pending] 03/22/20 06:00: White Blood Count 10.2, Red Blood Count 3.71L, Hemoglobin 11.7L, Hematocrit 34.3L, Mean Corpuscular Volume 93, Mean Corpuscular Hemoglobin 31.5H, Mean Corpuscular Hemoglobin Concent 34.0, Red Cell Distribution Width 15.4H, Platelet Count 203, Mean Platelet Volume 7.4, Neutrophils (%) (Auto) 73.9, Lymphocytes (%) (Auto) 13.6L, Monocytes (%) (Auto) 8.8, Eosinophils (%) (Auto) 2.6, Basophils (%) (Auto) 1.1, Sodium Level 142, Potassium Level 3.9, Chloride Level 103, Carbon Dioxide Level 30, Anion Gap 10, Blood Urea Nitrogen 6L, Creatinine 0.4L, Estimat Glomerular Filtration Rate > 60, Glucose Level 73L, Calcium Level 9.5 Current Medications Medications (Trade) Dose Ordered Sig/Federico Route PRN Reason Start Time Stop Time Status Last Admin Dose Admin Acetaminophen (Tylenol) 650 mg Q4H PRN ORAL FEVER 03/20/20 16:45 04/19/20 16:44 Albuterol/ Ipratropium (Albuterol/ Ipratropium) 3 ml Q4H PRN HHN Shortness of Breath 03/20/20 16:45 03/25/20 16:44 03/21/20 23:38 Amlodipine Besylate (Norvasc) 10 mg DAILY ORAL 03/21/20 09:00 04/20/20 08:59 03/22/20 09:22 Barium Sulfate (Varibar Honey) 250 ml NOW PRN RAD 03/22/20 08:15 03/25/20 08:02 Barium Sulfate (Varibar [place]) 240 ml NOW PRN RAD 03/22/20 08:15 03/25/20 08:02 Barium Sulfate (Varibar Pudding) 230 ml NOW PRN RAD 03/22/20 08:15 03/25/20 08:02 Barium Sulfate (Varibar Thin Liquid powder) 148 gm NOW PRN RAD 03/22/20 08:15 03/25/20 08:02 Cefepime HCl 2 gm/ Dextrose 110 ml @ 220 mls/hr Q24H IV 03/21/20 09:00 03/28/20 08:59 03/22/20 10:31 Dextrose (Dextrose 50%) 25 ml Q30M PRN IV Hypoglycemia 03/20/20 16:45 06/18/20 16:44 Dextrose (Dextrose 50%) 50 ml Q30M PRN IV Hypoglycemia 03/20/20 16:45 06/18/20 16:44 Heparin Sodium (Porcine) (Heparin 5000 units/ml) 5,000 units EVERY 12 HOURS SUBQ 03/21/20 21:00 05/05/20 20:59 03/22/20 09:22 Insulin Aspart (NovoLOG) BEFORE MEALS AND HS SUBQ 03/21/20 06:30 06/19/20 06:29 Levothyroxine Sodium (Synthroid) 50 mcg ACBREAKFAST ORAL 03/21/20 06:30 04/20/20 06:29 03/21/20 08:17 Lorazepam (Ativan 2mg/ml 1ml) 2 mg Q2H PRN IV For Anxiety 03/20/20 16:45 03/27/20 16:44 Mirtazapine (Remeron) 7.5 mg BEDTIME ORAL 03/20/20 21:00 06/18/20 20:59 03/21/20 20:57 Ondansetron HCl (Zofran) 4 mg Q6H PRN IVP Nausea & Vomiting 03/20/20 16:45 04/19/20 16:44 Polyethylene Glycol (Miralax) 17 gm DAILYPRN PRN ORAL Constipation 03/20/20 16:45 04/19/20 16:44 Promethazine HCl/ Codeine (Phenergan with Codeine) 5 ml Q4H PRN ORAL For Cough 03/20/20 16:45 04/19/20 16:44 Sodium Chloride 1,000 ml @ 50 mls/hr Q20H IV 03/20/20 23:00 04/19/20 22:59 03/21/20 04:47 Vancomycin HCl (Vanco pharmacy to dose) 1 ea DAILY PRN MISC . 03/21/20 10:45 04/20/20 10:44 Vancomycin HCl 500 mg/Dextrose 110 ml @ 110 mls/hr Q12H IVPB 03/21/20 06:00 03/26/20 05:59 03/22/20 06:06 Assessment/Plan Problems: (1) Nosocomial pneumonia (2) Sepsis (3) COPD (chronic obstructive pulmonary disease) (4) UTI (urinary tract infection) (5) History of hypertension (6) Diabetes mellitus (7) Gout (8) Alzheimer's dementia (9) Hypothyroidism Assessment/Plan has been afebirle respiratory isolation chest PT, keep right chest elevated repeat CXR pending ID evaluation broad spectrum antibiotics check sputum resume routine meds symptomatic treatment DVT prophylaxis Pt should be DNR considering severity of her pneumonia and her age. Jessenia Biggs MD Mar 22, 2020 11:31
[2020-03-22 12:00] VITALS: BP 132/72
--- NOTE | 2020-03-22 12:29 | Diagnostic Imaging Report ---
Clinical Indication: Hypoxic, coughing up phlegm, wheezing, history of asthma Technique: Spiral acquisitions obtained through the chest. No IV contrast utilized, per referring physician request. Multiplanar reconstructions generated. Total dose length product 208 mGycm. CTDIvol(s) 5 mGy. Dose reduction achieved using automated exposure control Comparison: none Findings: In the left upper lobe, there is a large mass which demonstrates a combination lesion an air-filled cystic lesion and a soft tissue mass. This is complex in shape, but dimensions are approximately 7.4 cm AP, 5 cm transverse, 6 cm craniocaudad. The cystic component is anterior and is mostly thin-walled. The soft tissue component is located on the posterior aspect of the lesion, measures 6.7 x 3.5 x 5.1 cm. There is a calcification at the posterolateral aspect of the solid component. The remainder of the left upper lobe demonstrates bronchial wall thickening and areas of groundglass and interstitial opacity, as well as some focal denser opacity in the inferior lingula. The left lower lobe demonstrates posterior atelectatic changes, and areas of groundglass opacity and interstitial thickening elsewhere. The right upper lobe demonstrates volume loss and bronchiectasis to the apex, peripheral interstitial and irregular airspace opacities, clinically inferiorly. Irregular peripheral interstitial airspace opacities are also seen in the right middle lobe. The right lower lobe demonstrates posterior dependent atelectatic changes and possibly trace pleural fluid. There are also irregular airspace opacities present, predominantly posteriorly. The heart size is borderline enlarged. There is trace pericardial thickening versus fluid. Bilateral parenchymal disease is confluent with the pulmonary loi, although no definite hilar lymphadenopathy is demonstrated. No definite pulmonary arterial dilatation. The distal trachea is markedly ectatic. No axillary supraclavicular mass or adenopathy. The esophagus is unremarkable. The included upper abdominal anatomy demonstrates colonic diverticulosis. There are probably gallstones. There are degenerative changes of the thoracic spine and upper lumbar spine. Impression: Large mixed air filled cystic and solid mass in the left upper lobe. As much of the cystic component has thin angeles, this could represent a large bulla with a mural mass. Other possibilities include cavitary postinflammatory lesion from prior infection, active cavitary inflammatory lesion, cavitary neoplastic mass. Parenchymal disease throughout both lungs. Appearance suggestive of an organizing pneumonia of uncertain acuity although suspect a significant chronic component. There may also be a component of pulmonary edema given the presence of cardiomegaly Equivocal trace bilateral pleural effusions Borderline cardiomegaly Markedly ectatic distal trachea. Suspect that this is a traction phenomenon due to cicatrization of the right upper lobe Colonic diverticulosis Degenerative thoracic spondylosis The CT scanner at [facility] is accredited by the [employer] and the scans are performed using protocols designed to limit radiation exposure to as low as reasonably achievable to attain images of sufficient resolution adequate for diagnostic evaluation.
[2020-03-22 12:55] LABS: BASOPHILS % (AUTO) 1.5 % (0.0-2.0); EOSINOPHILS % (AUTO) 3.6 % (0.0-3.0); HEMATOCRIT 34.4 % (37.0-47.0); LYMPHOCYTES % (AUTO) 11.9 % (20.0-45.0); MEAN CORPUSCULAR VOLUME 96 FL (80-99); MONOCYTES % (AUTO) 7.5 % (1.0-10.0); NEUTROPHILS % (AUTO) 75.5 % (45.0-75.0); PLATELET COUNT 243 K/UL (150-450); RED BLOOD COUNT 3.57 M/UL (4.20-5.40); RED CELL DISTRIBUTION WIDTH 14.9 % (11.6-14.8); WHITE BLOOD COUNT 10.3 K/UL (4.8-10.8)
[2020-03-22] MEDS ORDERED: PPD Tuberculin Skin Test 5TU IDERMAL ONE (14:00)
[2020-03-22 16:00] VITALS: BP 149/74
--- NOTE | 2020-03-22 16:39 | Internal Med Progress Note ---
Subjective Date of Service: Mar 22, 2020 Physician Name Peterson Palacios Attending Physician Jonatna Munguia MD Current Medications Medications (Trade) Dose Ordered Sig/Federico Route PRN Reason Start Time Stop Time Status Last Admin Dose Admin Acetaminophen (Tylenol) 650 mg Q4H PRN ORAL FEVER 03/20/20 16:45 04/19/20 16:44 Albuterol/ Ipratropium (Albuterol/ Ipratropium) 3 ml Q4H PRN HHN Shortness of Breath 03/20/20 16:45 03/25/20 16:44 03/21/20 23:38 Amlodipine Besylate (Norvasc) 10 mg DAILY ORAL 03/21/20 09:00 04/20/20 08:59 03/22/20 09:22 Barium Sulfate (Varibar Honey) 250 ml NOW PRN MC RAD 03/22/20 08:15 03/25/20 08:02 Barium Sulfate (Varibar [place]) 240 ml NOW PRN MC RAD 03/22/20 08:15 03/25/20 08:02 Barium Sulfate (Varibar Pudding) 230 ml NOW PRN MC RAD 03/22/20 08:15 03/25/20 08:02 Barium Sulfate (Varibar Thin Liquid powder) 148 gm NOW PRN MC RAD 03/22/20 08:15 03/25/20 08:02 Cefepime HCl 2 gm/ Dextrose 110 ml @ 220 mls/hr Q24H IV 03/21/20 09:00 03/28/20 08:59 03/22/20 10:31 Dextrose (Dextrose 50%) 25 ml Q30M PRN IV Hypoglycemia 03/20/20 16:45 06/18/20 16:44 Dextrose (Dextrose 50%) 50 ml Q30M PRN IV Hypoglycemia 03/20/20 16:45 06/18/20 16:44 Heparin Sodium (Porcine) (Heparin 5000 units/ml) 5,000 units EVERY 12 HOURS SUBQ 03/21/20 21:00 05/05/20 20:59 03/22/20 09:22 Insulin Aspart (NovoLOG) BEFORE MEALS AND HS SUBQ 03/21/20 06:30 06/19/20 06:29 Levothyroxine Sodium (Synthroid) 50 mcg ACBREAKFAST ORAL 03/21/20 06:30 04/20/20 06:29 03/21/20 08:17 Lorazepam (Ativan 2mg/ml 1ml) 2 mg Q2H PRN IV For Anxiety 03/20/20 16:45 03/27/20 16:44 Mirtazapine (Remeron) 7.5 mg BEDTIME ORAL 03/20/20 21:00 06/18/20 20:59 03/21/20 20:57 Ondansetron HCl (Zofran) 4 mg Q6H PRN IVP Nausea & Vomiting 03/20/20 16:45 04/19/20 16:44 Polyethylene Glycol (Miralax) 17 gm DAILYPRN PRN ORAL Constipation 03/20/20 16:45 04/19/20 16:44 Promethazine HCl/ Codeine (Phenergan with Codeine) 5 ml Q4H PRN ORAL For Cough 03/20/20 16:45 04/19/20 16:44 Sodium Chloride 1,000 ml @ 50 mls/hr Q20H IV 03/20/20 23:00 04/19/20 22:59 03/22/20 15:42 Vancomycin HCl (Vanco pharmacy to dose) 1 ea DAILY PRN MISC . 03/21/20 10:45 04/20/20 10:44 Vancomycin HCl 500 mg/Dextrose 110 ml @ 110 mls/hr Q12H IVPB 03/21/20 06:00 03/26/20 05:59 03/22/20 06:06 Allergies: Coded Allergies: PENICILLINS (Verified Allergy, Unknown, 03/20/20) RIFAXIMIN (Verified Allergy, Unknown, 03/20/20) SHELLFISH DERIVED (Verified Allergy, Unknown, 03/20/20) ROS Limited/Unobtainable: Yes Subjective 85 YO F admitted with hypoxic respiratory failure. Now pneumonia with left upper lung mass. Cover for Int Mariano Munguia Objective Last Vital Signs Date Time Temp Pulse Resp B/P (MAP) Pulse Ox O2 Delivery O2 Flow Rate FiO2 03/22/20 09:22 101 154/75 03/22/20 09:00 Room Air 03/22/20 08:00 97.3 20 93 03/21/20 23:48 3.0 32 Laboratory Tests Test 03/21/20 20:52 03/22/20 06:00 03/22/20 12:30 03/22/20 12:47 POC Whole Blood Glucose Pending White Blood Count 10.2 K/UL (4.8-10.8) 10.3 K/UL (4.8-10.8) Red Blood Count 3.71 M/UL (4.20-5.40) L 3.57 M/UL (4.20-5.40) L Hemoglobin 11.7 G/DL (12.0-16.0) L 11.0 G/DL (12.0-16.0) L Hematocrit 34.3 % (37.0-47.0) L 34.4 % (37.0-47.0) L Mean Corpuscular Volume 93 FL (80-99) 96 FL (80-99) Mean Corpuscular Hemoglobin 31.5 PG (27.0-31.0) H 30.8 PG (27.0-31.0) Mean Corpuscular Hemoglobin Concent 34.0 G/DL (32.0-36.0) 31.9 G/DL (32.0-36.0) L Red Cell Distribution Width 15.4 % (11.6-14.8) H 14.9 % (11.6-14.8) H Platelet Count 203 K/UL (150-450) 243 K/UL (150-450) Mean Platelet Volume 7.4 FL (6.5-10.1) 7.7 FL (6.5-10.1) Neutrophils (%) (Auto) 73.9 % (45.0-75.0) 75.5 % (45.0-75.0) H Lymphocytes (%) (Auto) 13.6 % (20.0-45.0) L 11.9 % (20.0-45.0) L Monocytes (%) (Auto) 8.8 % (1.0-10.0) 7.5 % (1.0-10.0) Eosinophils (%) (Auto) 2.6 % (0.0-3.0) 3.6 % (0.0-3.0) H Basophils (%) (Auto) 1.1 % (0.0-2.0) 1.5 % (0.0-2.0) Sodium Level 142 MMOL/L (136-145) Potassium Level 3.9 MMOL/L (3.5-5.1) Chloride Level 103 MMOL/L (98-107) Carbon Dioxide Level 30 MMOL/L (21-32) Anion Gap 10 mmol/L (5-15) Blood Urea Nitrogen 6 mg/dL (7-18) L Creatinine 0.4 MG/DL (0.55-1.30) L Estimat Glomerular Filtration Rate > 60 mL/min (>60) Glucose Level 73 MG/DL (74-106) L Calcium Level 9.5 MG/DL (8.5-10.1) Histoplasma Antigen Pending Lactate Dehydrogenase 174 U/L (81-234) Carcinoembryonic Antigen Pending Blastomyces Ab Immunodiffusion Pending Coccidioides Antibody (Comp Fix) Pending Histoplasma Mycelial Antibody Pending Histoplasma Antibody w Mycelial Ag Pending Histoplasma Antibody with Yeast Ag Pending HIV (1&2) Antibody Rapid Negative (NEGATIVE) Microbiology Date/Time Source Procedure Growth Status 03/20/20 14:00 Urine,Clean Catch Urine Culture - Preliminary Escherichia Coli Strep Species, Alpha Hemolytic Resulted 03/20/20 13:55 Rectum - Final NO CARBAPENEM-RESISTANT ENTEROBACTERI... Complete 03/20/20 13:55 Rectum VRE Culture - Final NO VANCOMYCIN RESISTANT ENTEROCOCCUS ... Complete 03/20/20 13:55 Nasal Nares MRSA Culture - Final NO METHICILLIN RESISTANT STAPH AUREUS... Complete 03/20/20 13:30 Blood Blood Culture - Preliminary NO GROWTH AFTER 24 HOURS Resulted 03/20/20 13:15 Blood Blood Culture - Preliminary NO GROWTH AFTER 24 HOURS Resulted 03/20/20 12:35 Nasopharynx SARS-CoV-2 RdRp Gene Assay - Final Complete Intake and Output 03/21/20 03/22/20 19:00 07:00 Intake Total 240 ml Output Total 3350 ml 1550 ml Balance -3350 ml -1310 ml Intake Oral 240 ml Output Urine Total 3350 ml 1550 ml Objective PHYSICAL EXAMINATION: GENERAL: The patient is a well-developed and well-nourished female, in no apparent distress. HEENT: Eyes, pupils are equal and responsive to light and accommodation. Extraocular movements are intact. NECK: Supple without lymphadenopathy. CHEST: Diffuse wheezes bilaterally with decreased breath sounds in the right lower base, otherwise without wheezes or rales. CARDIOVASCULAR: Regular rhythm and rate. S1, S2 normal without murmurs, rubs, or gallops. ABDOMEN: Soft, nontender, nondistended. Positive bowel sounds. No evidence of hepatosplenomegaly. Currently, no rebound or guarding noted. EXTREMITIES: Negative for clubbing, cyanosis, or edema. RECTAL/GENITAL: Not performed. NEUROLOGIC: Cranial nerves II through XII are grossly intact without focal deficits. Assessment/Plan Assessment/Plan ASSESSMENT: This is an 85-year-old female with: 1. Bilateral pneumonia. 2. Left upper lung mass. 3. Respiratory failure. 4. Diabetes type 2. 5. Hypertension. 6. Hypothyroidism 7. depression TREATMENT: 1. Pneumonia/respiratory failure. Pulmonary consultation =Dr. Jessenia Biggs. Inf Disease=Dr Ferguson. Continue vancomycin and cefepime per ID 2. Left upper lung mass See CT scan of the chest results. Follow recommendations of Pulmonary. Onc= 3. Diabetes. The patient has been placed on NovoLog sliding scale. 4. Hypertension, continue amlodipine as above. 5. Hypothyroidism. Continue Levoxyl as above. 6. Major depression. Continue mirtazapine as above. Peterson Palacios MD Mar 22, 2020 16:39
[2020-03-22 20:00] VITALS: BP 137/72
[2020-03-23] VITALS: BP 141/73
[2020-03-23 04:00] VITALS: BP 150/69
[2020-03-23] MEDS: NovoLOG Insulin Flexpen SUBQ SCH ×4 (06:12→21:00)
[2020-03-23] MEDS: Vancomycin 500mg/D5W 110ml IVPB SCH ×4 (06:12→18:36)
--- NOTE | 2020-03-23 06:44 | Consultation ---
History of Present Illness General Chief Complaint: Dyspnea/Respdistress Referring physician: Dr. Palacios Reason for Consultation: Pneumonia Present Illness Allergies: Coded Allergies: PENICILLINS (Verified Allergy, Unknown, 03/20/20) RIFAXIMIN (Verified Allergy, Unknown, 03/20/20) SHELLFISH DERIVED (Verified Allergy, Unknown, 03/20/20) Medication History Scheduled Amlodipine Besylate* (Amlodipine Besylate*), 10 MG ORAL DAILY, (Reported) Docusate Sodium* (Docusate Sodium*), 200 MG ORAL TWICE A DAY, (Reported) Insulin Glargine (Lantus), 12 SUBQ BEDTIME, (Reported) Levofloxacin (Levofloxacin*), 250 MG ORAL DAILY, (Reported) Levothyroxine Sodium* (Levothyroxine Sodium*), 50 MCG ORAL DAILY, (Reported) Magnesium Oxide (Magnesium Oxide), 400 MG ORAL DAILY, (Reported) Mirtazapine* (Mirtazapine*), 7.5 MG ORAL BEDTIME, (Reported) Multivitamin With Minerals (Multivitamins With Minerals*), 1 TAB ORAL DAILY, (Reported) Poliomyelitis Vaccine, Killed (Ipol), 5 ML IJ Q6HR, (Reported) Scheduled PRN Acetaminophen* (Acetaminophen 325MG Tablet*), 650 MG ORAL Q6H PRN for fever/pain, (Reported) Metformin Hcl (Glucophage Xr), 750 MG ORAL TWICE A DAY PRN for DM, (Reported) Miscellaneous Medications Colchicine (Colcrys), 0.6 MG PO, (Reported) Patient History Healthcare decision maker N Resuscitation status Advanced Directive on File Physical Exam Last 24 Hour Vital Signs Date Time Temp Pulse Resp B/P (MAP) Pulse Ox O2 Delivery O2 Flow Rate FiO2 03/23/20 04:00 97.3 94 20 150/69 (96) 100 03/23/20 04:00 91 03/23/20 00:00 97.4 97 20 141/73 (95) 97 03/23/20 00:00 87 03/22/20 21:00 Room Air 03/22/20 20:00 101 03/22/20 20:00 98.5 98 20 137/72 (93) 98 03/22/20 19:23 98 Nasal Cannula 3.0 32 03/22/20 19:23 99 18 98 Room Air 3.0 32 03/22/20 16:00 97.9 80 20 149/74 (99) 93 03/22/20 16:00 106 03/22/20 12:00 97.5 72 22 132/72 (92) 95 03/22/20 12:00 109 03/22/20 09:22 101 154/75 03/22/20 09:00 Room Air 03/22/20 08:04 101 03/22/20 08:00 97.3 110 20 154/75 (101) 93 Intake and Output 03/22/20 03/23/20 19:00 07:00 Output Total 800 ml 1000 ml Balance -800 ml -1000 ml Output Urine Total 800 ml 1000 ml # Voids 1 Laboratory Tests Test 03/22/20 12:22 03/22/20 12:30 03/22/20 12:47 03/22/20 15:35 POC Whole Blood Glucose Pending Histoplasma Antigen Pending White Blood Count 10.3 K/UL (4.8-10.8) Red Blood Count 3.57 M/UL (4.20-5.40) L Hemoglobin 11.0 G/DL (12.0-16.0) L Hematocrit 34.4 % (37.0-47.0) L Mean Corpuscular Volume 96 FL (80-99) Mean Corpuscular Hemoglobin 30.8 PG (27.0-31.0) Mean Corpuscular Hemoglobin Concent 31.9 G/DL (32.0-36.0) L Red Cell Distribution Width 14.9 % (11.6-14.8) H Platelet Count 243 K/UL (150-450) Mean Platelet Volume 7.7 FL (6.5-10.1) Neutrophils (%) (Auto) 75.5 % (45.0-75.0) H Lymphocytes (%) (Auto) 11.9 % (20.0-45.0) L Monocytes (%) (Auto) 7.5 % (1.0-10.0) Eosinophils (%) (Auto) 3.6 % (0.0-3.0) H Basophils (%) (Auto) 1.5 % (0.0-2.0) Lactate Dehydrogenase 174 U/L (81-234) Carcinoembryonic Antigen Pending Blastomyces Ab Immunodiffusion Pending Coccidioides Antibody (Comp Fix) Pending Histoplasma Mycelial Antibody Pending Histoplasma Antibody w Mycelial Ag Pending Histoplasma Antibody with Yeast Ag Pending HIV (1&2) Antibody Rapid Negative (NEGATIVE) Aspergillus galactomannan Antigen Pending Beta-(1,3)-D-Glucan Pending Test 03/22/20 17:45 POC Whole Blood Glucose 83 MG/DL (74-106) Height (Feet): 5 Height (Inches): 3.00 Weight (Pounds): 148 Medications Current Medications Medications (Trade) Dose Ordered Sig/Federico Route PRN Reason Start Time Stop Time Status Last Admin Dose Admin Acetaminophen (Tylenol) 650 mg Q4H PRN ORAL FEVER 03/20/20 16:45 04/19/20 16:44 Albuterol/ Ipratropium (Albuterol/ Ipratropium) 3 ml Q4H PRN HHN Shortness of Breath 03/20/20 16:45 03/25/20 16:44 03/21/20 23:38 Amlodipine Besylate (Norvasc) 10 mg DAILY ORAL 03/21/20 09:00 04/20/20 08:59 03/22/20 09:22 Barium Sulfate (Varibar Honey) 250 ml NOW PRN MC RAD 03/22/20 08:15 03/25/20 08:02 Barium Sulfate (Varibar [place]) 240 ml NOW PRN MC RAD 03/22/20 08:15 03/25/20 08:02 Barium Sulfate (Varibar Pudding) 230 ml NOW PRN MC RAD 03/22/20 08:15 03/25/20 08:02 Barium Sulfate (Varibar Thin Liquid powder) 148 gm NOW PRN MC RAD 03/22/20 08:15 03/25/20 08:02 Cefepime HCl 2 gm/ Dextrose 110 ml @ 220 mls/hr Q24H IV 03/21/20 09:00 03/28/20 08:59 03/22/20 10:31 Dextrose (Dextrose 50%) 25 ml Q30M PRN IV Hypoglycemia 03/20/20 16:45 06/18/20 16:44 Dextrose (Dextrose 50%) 50 ml Q30M PRN IV Hypoglycemia 03/20/20 16:45 06/18/20 16:44 Heparin Sodium (Porcine) (Heparin 5000 units/ml) 5,000 units EVERY 12 HOURS SUBQ 03/21/20 21:00 05/05/20 20:59 03/22/20 21:00 Insulin Aspart (NovoLOG) BEFORE MEALS AND HS SUBQ 03/21/20 06:30 06/19/20 06:29 Levothyroxine Sodium (Synthroid) 50 mcg ACBREAKFAST ORAL 03/21/20 06:30 04/20/20 06:29 03/23/20 06:14 Lorazepam (Ativan 2mg/ml 1ml) 2 mg Q2H PRN IV For Anxiety 03/20/20 16:45 03/27/20 16:44 Mirtazapine (Remeron) 7.5 mg BEDTIME ORAL 03/20/20 21:00 06/18/20 20:59 03/22/20 21:00 Ondansetron HCl (Zofran) 4 mg Q6H PRN IVP Nausea & Vomiting 03/20/20 16:45 04/19/20 16:44 Polyethylene Glycol (Miralax) 17 gm DAILYPRN PRN ORAL Constipation 03/20/20 16:45 04/19/20 16:44 Promethazine HCl/ Codeine (Phenergan with Codeine) 5 ml Q4H PRN ORAL For Cough 03/20/20 16:45 04/19/20 16:44 Sodium Chloride 1,000 ml @ 50 mls/hr Q20H IV 03/20/20 23:00 04/19/20 22:59 03/22/20 15:42 Vancomycin HCl (Vanco pharmacy to dose) 1 ea DAILY PRN MISC . 03/21/20 10:45 04/20/20 10:44 Vancomycin HCl 500 mg/Dextrose 110 ml @ 110 mls/hr Q12H IVPB 03/21/20 06:00 03/26/20 05:59 03/23/20 06:12 Assessment/Plan Assessment/Plan: Oncology Consultation REQ : Suzanne Winkler DOS: 03/23/2020 RFC: Lung mass HPI Patient brought via paramedics for hypoxia. Her O2 saturation was 90% and when she was placed on a nonrebreather mask it went up to 97% patient denies fevers or chills. She is a history of asthma. She has been wheezing. She denies nausea but vomited 1 time in the emergency department. She denies chest pain or pain throughout her body. She has been coughing up phlegm but there is been no color. Patient is unaware of exposure to Covid positive contacts but she is at a senior care facility. No sore throat, palpitations, diarrhea, dysuria, joint pain, anxiety, visual changes, dizziness, headache. Patient states she is unable to urinate. Seen by pulm, noted to have lung mass Allergies: PENICILLINS (Verified Allergy, Unknown, 03/20/20) RIFAXIMIN (Verified Allergy, Unknown, 03/20/20) SHELLFISH DERIVED (Verified Allergy, Unknown, 03/20/20) COVID-19 Screening Contact w/high risk pt: No Experienced COVID-19 symptoms?: No COVID-19 Testing performed CREEL OPERATOR: No Patient History Past Medical History: see triage record, old chart reviewed, asthma Social History: Denies: smoking Social History Narrative senior living facility DNR Reviewed Nursing Documentation: PMH: Agreed; PSxH: Agreed Nursing Documentation-PMH Hx Hypertension: Yes Hx Diabetes: Yes Review of Systems All Other Systems: negative except mentioned in HPI Physical Exam Vitals: reviewed General Appearance: alert, non-toxic, mild distress, Chronically Ill HEENT: moist mucus membranes Neck: full range of motion, supple, no meningismus Respiratory: no retraction, rales, wheezing Cardiovascular: no edema, tachycardia Gastrointestinal: non tender, soft, decreased bowel sounds Genitourinary: no CVA tenderness Musculoskeletal: back normal, no calf tenderness Neurologic: oriented - X2, DTRs symmetric, sensory intact, motor weakness Psychiatric: mood/affect normal Skin: no rash, warm/dry Labs: noted Imaging: noted Assessment and Recs # LUNG MASS In the left upper lobe, there is a large mass which demonstrates a combination lesion an air-filled cystic lesion and a soft tissue mass. This is complex in shape, but dimensions are approximately 7.4 cm AP, 5 cm transverse, 6 cm craniocaudad. The cystic component is anterior and is mostly thin-walled. The soft tissue component is located on the posterior aspect of the lesion, measures 6.7 x 3.5 x 5.1 cm. --> may be fungus ball as well as malignancy --> consider performance status if need a biopsy --> dw pcp, with hypoxia # Bilateral pneumonia w/ hypoxia --> as per pulm, id --> ABX vanc/cefepime # Respiratory failure. # Diabetes type 2. # Hypertension. # Hypothyroidism # depression # Bronchospasm # Sepsis with uti # Dvt ppx heparin sq Appreciate consultation and dw RN Ravi Roberts MD Mar 23, 2020 06:44
[2020-03-23 07:30] LABS: BASOPHILS % (AUTO) 0.7 % (0.0-2.0); EOSINOPHILS % (AUTO) 5.2 % (0.0-3.0); HEMATOCRIT 33.2 % (37.0-47.0); HEMOGLOBIN 11.5 G/DL (12.0-16.0); LYMPHOCYTES % (AUTO) 14.3 % (20.0-45.0); MEAN CORPUSCULAR VOLUME 91 FL (80-99); MONOCYTES % (AUTO) 6.7 % (1.0-10.0); NEUTROPHILS % (AUTO) 73.1 % (45.0-75.0); PLATELET COUNT 249 K/UL (150-450); RED BLOOD COUNT 3.63 M/UL (4.20-5.40); RED CELL DISTRIBUTION WIDTH 15.5 % (11.6-14.8); WHITE BLOOD COUNT 9.3 K/UL (4.8-10.8)
[2020-03-23 07:46] LABS: ALANINE AMINOTRANSFERASE 25 U/L (12-78); ALBUMIN 2.9 G/DL (3.4-5.0); ALBUMIN/GLOBULIN RATIO 0.7 (1.0-2.7); ALKALINE PHOSPHATASE 80 U/L (46-116); ANION GAP 9 mmol/L (5-15); ASPARTATE AMINO TRANSFERASE 13 U/L (15-37); BILIRUBIN,TOTAL 0.5 MG/DL (0.2-1.0); BLOOD UREA NITROGEN 7 mg/dL (7-18); CALCIUM 9.5 MG/DL (8.5-10.1); CARBON DIOXIDE 30 MMOL/L (21-32); CHLORIDE 100 MMOL/L (98-107); CREATININE 0.6 MG/DL (0.55-1.30); PHOSPHORUS 4.4 MG/DL (2.5-4.9); SODIUM 139 MMOL/L (136-145)
--- NOTE | 2020-03-23 07:53 | Infectious Diseases Prog Note ---
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 coli (S-CTX) and Strep spp CXR: 1. Opacification of large portion of the right hemithorax. Rightward deviation of the mediastinum and heart likely due to volume loss of the right lung. Large right pleural effusion. 2. Interstitial and mild airspace opacities bilaterally. More focal round opacity in the left upper lung, cannot exclude mass. Consider CT chest. MRSA nares neg 03/21 CT chest: cavitary lesion w/ ?fungal ball per my read In the left upper lobe, there is a large mass which demonstrates a combination lesion an air-filled cystic lesion and a soft tissue mass. This is complex in shape, but dimensions are approximately 7.4 cm AP, 5 cm transverse, 6 cm craniocaudad. The cystic component is anterior and is mostly thin-walled. The soft tissue component is located on the posterior aspect of the lesion, measures 6.7 x 3.5 x 5.1 cm. There is a calcification at the posterolateral aspect of the solid component. The remainder of the left upper lobe demonstrates bronchial wall thickening and areas of groundglass and interstitial opacity, as well as some focal denser opacity in the inferior lingula. The left lower lobe demonstrates posterior atelectatic changes, and areas of groundglass opacity and interstitial thickening elsewhere. The right upper lobe demonstrates volume loss and bronchiectasis to the apex, peripheral interstitial and irregular airspace opacities, clinically inferiorly. Irregular peripheral interstitial airspace opacities are also seen in the right middle lobe. The right lower lobe demonstrates posterior dependent atelectatic changes and possibly trace pleural fluid. There are also irregular airspace opacities present, predominantly posteriorly. Impression: Large mixed air filled cystic and solid mass in the left upper lobe. As much of the cystic component has thin angeles, this could represent a large bulla with a mural mass. Other possibilities include cavitary postinflamm atory lesion from prior infection, active cavitary inflammatory lesion, cavitary neoplastic mass. Parenchymal disease throughout both lungs. Appearance suggestive of an organizing pneumonia of uncertain acuity although suspect a significant chronic component. 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 [facility] will continue to follow. Subjective Allergies: Coded Allergies: PENICILLINS (Verified Allergy, Unknown, 03/20/20) RIFAXIMIN (Verified Allergy, Unknown, 03/20/20) SHELLFISH DERIVED (Verified Allergy, Unknown, 03/20/20) AF WBC improving to 9 NAD on RA Says her breathing is lousy Wants an inhaler Objective Last 24 Hour Vital Signs Date Time Temp Pulse Resp B/P (MAP) Pulse Ox O2 Delivery O2 Flow Rate FiO2 03/23/20 04:00 97.3 94 20 150/69 (96) 100 03/23/20 04:00 91 03/23/20 00:00 97.4 97 20 141/73 (95) 97 03/23/20 00:00 87 03/22/20 21:00 Room Air 03/22/20 20:00 101 03/22/20 20:00 98.5 98 20 137/72 (93) 98 03/22/20 19:23 98 Nasal Cannula 3.0 32 03/22/20 19:23 99 18 98 Room Air 3.0 32 03/22/20 16:00 97.9 80 20 149/74 (99) 93 03/22/20 16:00 106 03/22/20 12:00 97.5 72 22 132/72 (92) 95 03/22/20 12:00 109 03/22/20 09:22 101 154/75 03/22/20 09:00 Room Air 03/22/20 08:04 101 03/22/20 08:00 97.3 110 20 154/75 (101) 93 Height (Feet): 5 Height (Inches): 3.00 Weight (Pounds): 148 Gen: NAD HEENT: NCAT CV: RRR Pulm: Rhonchi BL Abd: Soft, NTND Ext: No c/c/e Skin: No visible rashes Neuro: Awake, interactive Microbiology Date/Time Source Procedure Growth Status 03/21/20 16:06 Sputum Gram Stain - Final Resulted 03/21/20 16:06 Sputum Sputum Culture Pending Resulted 03/20/20 14:00 Urine,Clean Catch Urine Culture - Final Escherichia Coli [place] Species Complete 03/20/20 13:55 Rectum - Final NO CARBAPENEM-RESISTANT ENTEROBACTERI... Complete 03/20/20 13:55 Rectum VRE Culture - Final NO VANCOMYCIN RESISTANT ENTEROCOCCUS ... Complete 03/20/20 13:55 Nasal Nares MRSA Culture - Final NO METHICILLIN RESISTANT STAPH AUREUS... Complete 03/20/20 13:30 Blood Blood Culture - Preliminary NO GROWTH AFTER 48 HOURS Resulted 03/20/20 13:15 Blood Blood Culture - Preliminary NO GROWTH AFTER 48 HOURS Resulted 03/20/20 12:35 Nasopharynx SARS-CoV-2 RdRp Gene Assay - Final Complete Laboratory Tests Test 03/22/20 12:22 03/22/20 12:30 03/22/20 12:47 03/22/20 15:35 POC Whole Blood Glucose Pending Histoplasma Antigen Pending White Blood Count 10.3 K/UL (4.8-10.8) Red Blood Count 3.57 M/UL (4.20-5.40) L Hemoglobin 11.0 G/DL (12.0-16.0) L Hematocrit 34.4 % (37.0-47.0) L Mean Corpuscular Volume 96 FL (80-99) Mean Corpuscular Hemoglobin 30.8 PG (27.0-31.0) Mean Corpuscular Hemoglobin Concent 31.9 G/DL (32.0-36.0) L Red Cell Distribution Width 14.9 % (11.6-14.8) H Platelet Count 243 K/UL (150-450) Mean Platelet Volume 7.7 FL (6.5-10.1) Neutrophils (%) (Auto) 75.5 % (45.0-75.0) H Lymphocytes (%) (Auto) 11.9 % (20.0-45.0) L Monocytes (%) (Auto) 7.5 % (1.0-10.0) Eosinophils (%) (Auto) 3.6 % (0.0-3.0) H Basophils (%) (Auto) 1.5 % (0.0-2.0) Lactate Dehydrogenase 174 U/L (81-234) Carcinoembryonic Antigen Pending Blastomyces Ab Immunodiffusion Pending Coccidioides Antibody (Comp Fix) Pending Histoplasma Mycelial Antibody Pending Histoplasma Antibody w Mycelial Ag Pending Histoplasma Antibody with Yeast Ag Pending HIV (1&2) Antibody Rapid Negative (NEGATIVE) Aspergillus galactomannan Antigen Pending Beta-(1,3)-D-Glucan Pending Test 03/22/20 17:45 03/23/20 05:50 POC Whole Blood Glucose 83 MG/DL (74-106) White Blood Count 9.3 K/UL (4.8-10.8) Red Blood Count 3.63 M/UL (4.20-5.40) L Hemoglobin 11.5 G/DL (12.0-16.0) L Hematocrit 33.2 % (37.0-47.0) L Mean Corpuscular Volume 91 FL (80-99) Mean Corpuscular Hemoglobin 31.6 PG (27.0-31.0) H Mean Corpuscular Hemoglobin Concent 34.5 G/DL (32.0-36.0) Red Cell Distribution Width 15.5 % (11.6-14.8) H Platelet Count 249 K/UL (150-450) Mean Platelet Volume 7.4 FL (6.5-10.1) Neutrophils (%) (Auto) 73.1 % (45.0-75.0) Lymphocytes (%) (Auto) 14.3 % (20.0-45.0) L Monocytes (%) (Auto) 6.7 % (1.0-10.0) Eosinophils (%) (Auto) 5.2 % (0.0-3.0) H Basophils (%) (Auto) 0.7 % (0.0-2.0) Erythrocyte Sedimentation Rate Pending Sodium Level Pending Potassium Level Pending Chloride Level Pending Carbon Dioxide Level Pending Blood Urea Nitrogen Pending Creatinine Pending Estimat Glomerular Filtration Rate Pending Glucose Level Pending Calcium Level Pending Phosphorus Level Pending Magnesium Level Pending Total Bilirubin Pending Aspartate Amino Transf (AST/SGOT) Pending Alanine Aminotransferase (ALT/SGPT) Pending Alkaline Phosphatase Pending C-Reactive Protein, Quantitative Pending Total Protein Pending Albumin Pending Globulin Pending TB Test (T-Spot) Pending TB Test Nil Control (T-Spot) Pending TB Test Panel A (T-Spot) Pending TB Test Panel B (T-Spot) Pending TB Test Positive Control (T-Spot) Pending Current Medications Medications (Trade) Dose Ordered Sig/Federico Route PRN Reason Start Time Stop Time Status Last Admin Dose Admin Acetaminophen (Tylenol) 650 mg Q4H PRN ORAL FEVER 03/20/20 16:45 04/19/20 16:44 Albuterol/ Ipratropium (Albuterol/ Ipratropium) 3 ml Q4H PRN HHN Shortness of Breath 03/20/20 16:45 03/25/20 16:44 03/21/20 23:38 Amlodipine Besylate (Norvasc) 10 mg DAILY ORAL 03/21/20 09:00 04/20/20 08:59 03/22/20 09:22 Barium Sulfate (Varibar Honey) 250 ml NOW PRN MC RAD 03/22/20 08:15 03/25/20 08:02 Barium Sulfate (Varibar [place]) 240 ml NOW PRN MC RAD 03/22/20 08:15 03/25/20 08:02 Barium Sulfate (Varibar Pudding) 230 ml NOW PRN MC RAD 03/22/20 08:15 03/25/20 08:02 Barium Sulfate (Varibar Thin Liquid powder) 148 gm NOW PRN MC RAD 03/22/20 08:15 03/25/20 08:02 Cefepime HCl 2 gm/ Dextrose 110 ml @ 220 mls/hr Q24H IV 03/21/20 09:00 03/28/20 08:59 03/22/20 10:31 Dextrose (Dextrose 50%) 25 ml Q30M PRN IV Hypoglycemia 03/20/20 16:45 06/18/20 16:44 Dextrose (Dextrose 50%) 50 ml Q30M PRN IV Hypoglycemia 03/20/20 16:45 06/18/20 16:44 Heparin Sodium (Porcine) (Heparin 5000 units/ml) 5,000 units EVERY 12 HOURS SUBQ 03/21/20 21:00 05/05/20 20:59 03/22/20 21:00 Insulin Aspart (NovoLOG) BEFORE MEALS AND HS SUBQ 03/21/20 06:30 06/19/20 06:29 Levothyroxine Sodium (Synthroid) 50 mcg ACBREAKFAST ORAL 03/21/20 06:30 04/20/20 06:29 03/23/20 06:14 Lorazepam (Ativan 2mg/ml 1ml) 2 mg Q2H PRN IV For Anxiety 03/20/20 16:45 03/27/20 16:44 Mirtazapine (Remeron) 7.5 mg BEDTIME ORAL 03/20/20 21:00 06/18/20 20:59 03/22/20 21:00 Ondansetron HCl (Zofran) 4 mg Q6H PRN IVP Nausea & Vomiting 03/20/20 16:45 04/19/20 16:44 Polyethylene Glycol (Miralax) 17 gm DAILYPRN PRN ORAL Constipation 03/20/20 16:45 04/19/20 16:44 Promethazine HCl/ Codeine (Phenergan with Codeine) 5 ml Q4H PRN ORAL For Cough 03/20/20 16:45 04/19/20 16:44 Sodium Chloride 1,000 ml @ 50 mls/hr Q20H IV 03/20/20 23:00 04/19/20 22:59 03/22/20 15:42 Vancomycin HCl (Vanco pharmacy to dose) 1 ea DAILY PRN MISC . 03/21/20 10:45 04/20/20 10:44 Vancomycin HCl 500 mg/Dextrose 110 ml @ 110 mls/hr Q12H IVPB 03/21/20 06:00 03/26/20 05:59 03/23/20 06:12 Celsa Ferguson M.D. Mar 23, 2020 07:53
[2020-03-23 08:00] VITALS: BP 125/56
[2020-03-23] MEDS: Heparin 5000 units/ml inj SUBQ SCH ×2 (08:47→21:44)
[2020-03-23] MEDS: Cefepime HCl 2 GM in D5W 110 ML IV SCH (08:50)
--- NOTE | 2020-03-23 11:12 | Internal Med Progress Note ---
Subjective Date of Service: Mar 23, 2020 Physician Name Peterson Palacios Attending Physician Jonatan Munguia MD Current Medications Medications (Trade) Dose Ordered Sig/Federico Route PRN Reason Start Time Stop Time Status Last Admin Dose Admin Acetaminophen (Tylenol) 650 mg Q4H PRN ORAL FEVER 03/20/20 16:45 04/19/20 16:44 Albuterol/ Ipratropium (Albuterol/ Ipratropium) 3 ml Q4H PRN HHN Shortness of Breath 03/20/20 16:45 03/25/20 16:44 03/21/20 23:38 Amlodipine Besylate (Norvasc) 10 mg DAILY ORAL 03/21/20 09:00 04/20/20 08:59 03/23/20 08:51 Barium Sulfate (Varibar Honey) 250 ml NOW PRN MC RAD 03/22/20 08:15 03/25/20 08:02 Barium Sulfate (Varibar Yoe) 240 ml NOW PRN MC RAD 03/22/20 08:15 03/25/20 08:02 Barium Sulfate (Varibar Pudding) 230 ml NOW PRN MC RAD 03/22/20 08:15 03/25/20 08:02 Barium Sulfate (Varibar Thin Liquid powder) 148 gm NOW PRN MC RAD 03/22/20 08:15 03/25/20 08:02 Cefepime HCl 2 gm/ Dextrose 110 ml @ 220 mls/hr Q24H IV 03/21/20 09:00 03/28/20 08:59 03/23/20 08:50 Dextrose (Dextrose 50%) 25 ml Q30M PRN IV Hypoglycemia 03/20/20 16:45 06/18/20 16:44 Dextrose (Dextrose 50%) 50 ml Q30M PRN IV Hypoglycemia 03/20/20 16:45 06/18/20 16:44 Heparin Sodium (Porcine) (Heparin 5000 units/ml) 5,000 units EVERY 12 HOURS SUBQ 03/21/20 21:00 05/05/20 20:59 03/23/20 08:47 Insulin Aspart (NovoLOG) BEFORE MEALS AND HS SUBQ 03/21/20 06:30 06/19/20 06:29 Levothyroxine Sodium (Synthroid) 50 mcg ACBREAKFAST ORAL 03/21/20 06:30 04/20/20 06:29 03/23/20 06:14 Lorazepam (Ativan 2mg/ml 1ml) 2 mg Q2H PRN IV For Anxiety 03/20/20 16:45 03/27/20 16:44 Mirtazapine (Remeron) 7.5 mg BEDTIME ORAL 03/20/20 21:00 06/18/20 20:59 03/22/20 21:00 Ondansetron HCl (Zofran) 4 mg Q6H PRN IVP Nausea & Vomiting 03/20/20 16:45 04/19/20 16:44 Polyethylene Glycol (Miralax) 17 gm DAILYPRN PRN ORAL Constipation 03/20/20 16:45 04/19/20 16:44 Promethazine HCl/ Codeine (Phenergan with Codeine) 5 ml Q4H PRN ORAL For Cough 03/20/20 16:45 04/19/20 16:44 Sodium Chloride 1,000 ml @ 50 mls/hr Q20H IV 03/20/20 23:00 04/19/20 22:59 03/22/20 15:42 Vancomycin HCl (Vanco pharmacy to dose) 1 ea DAILY PRN MISC . 03/21/20 10:45 04/20/20 10:44 Vancomycin HCl 500 mg/Dextrose 110 ml @ 110 mls/hr Q12H IVPB 03/21/20 06:00 03/26/20 05:59 03/23/20 06:12 Allergies: Coded Allergies: PENICILLINS (Verified Allergy, Unknown, 03/20/20) RIFAXIMIN (Verified Allergy, Unknown, 03/20/20) SHELLFISH DERIVED (Verified Allergy, Unknown, 03/20/20) ROS Limited/Unobtainable: No Constitutional: Reports: no symptoms HEENT: Reports: no symptoms Cardiovascular: Reports: no symptoms Respiratory: Reports: no symptoms Gastrointestinal/Abdominal: Reports: no symptoms Genitourinary: Reports: no symptoms Neurologic/Psychiatric: Reports: no symptoms Subjective 85 YO F admitted with hypoxic respiratory failure. Now pneumonia with left upper lung mass. Cover for Int Mariano Munguia Objective Last Vital Signs Date Time Temp Pulse Resp B/P (MAP) Pulse Ox O2 Delivery O2 Flow Rate FiO2 03/23/20 09:00 Room Air 03/23/20 08:51 95 125/56 03/23/20 08:10 97 3.0 32 03/23/20 08:10 18 03/23/20 08:00 97.1 Laboratory Tests Test 03/22/20 12:22 03/22/20 12:30 03/22/20 12:47 03/22/20 15:35 POC Whole Blood Glucose Pending Histoplasma Antigen Pending White Blood Count 10.3 K/UL (4.8-10.8) Red Blood Count 3.57 M/UL (4.20-5.40) L Hemoglobin 11.0 G/DL (12.0-16.0) L Hematocrit 34.4 % (37.0-47.0) L Mean Corpuscular Volume 96 FL (80-99) Mean Corpuscular Hemoglobin 30.8 PG (27.0-31.0) Mean Corpuscular Hemoglobin Concent 31.9 G/DL (32.0-36.0) L Red Cell Distribution Width 14.9 % (11.6-14.8) H Platelet Count 243 K/UL (150-450) Mean Platelet Volume 7.7 FL (6.5-10.1) Neutrophils (%) (Auto) 75.5 % (45.0-75.0) H Lymphocytes (%) (Auto) 11.9 % (20.0-45.0) L Monocytes (%) (Auto) 7.5 % (1.0-10.0) Eosinophils (%) (Auto) 3.6 % (0.0-3.0) H Basophils (%) (Auto) 1.5 % (0.0-2.0) Lactate Dehydrogenase 174 U/L (81-234) Carcinoembryonic Antigen 26.2 ng/mL (0.0-4.7) H Blastomyces Ab Immunodiffusion Pending Coccidioides Antibody (Comp Fix) Pending Histoplasma Mycelial Antibody Pending Histoplasma Antibody w Mycelial Ag Pending Histoplasma Antibody with Yeast Ag Pending HIV (1&2) Antibody Rapid Negative (NEGATIVE) Aspergillus galactomannan Antigen Pending Beta-(1,3)-D-Glucan Pending Test 03/22/20 17:45 03/23/20 05:50 POC Whole Blood Glucose 83 MG/DL (74-106) White Blood Count 9.3 K/UL (4.8-10.8) Red Blood Count 3.63 M/UL (4.20-5.40) L Hemoglobin 11.5 G/DL (12.0-16.0) L Hematocrit 33.2 % (37.0-47.0) L Mean Corpuscular Volume 91 FL (80-99) Mean Corpuscular Hemoglobin 31.6 PG (27.0-31.0) H Mean Corpuscular Hemoglobin Concent 34.5 G/DL (32.0-36.0) Red Cell Distribution Width 15.5 % (11.6-14.8) H Platelet Count 249 K/UL (150-450) Mean Platelet Volume 7.4 FL (6.5-10.1) Neutrophils (%) (Auto) 73.1 % (45.0-75.0) Lymphocytes (%) (Auto) 14.3 % (20.0-45.0) L Monocytes (%) (Auto) 6.7 % (1.0-10.0) Eosinophils (%) (Auto) 5.2 % (0.0-3.0) H Basophils (%) (Auto) 0.7 % (0.0-2.0) Erythrocyte Sedimentation Rate 56 MM/HR (0-30) H Sodium Level 139 MMOL/L (136-145) Potassium Level 3.0 MMOL/L (3.5-5.1) L Chloride Level 100 MMOL/L (98-107) Carbon Dioxide Level 30 MMOL/L (21-32) Anion Gap 9 mmol/L (5-15) Blood Urea Nitrogen 7 mg/dL (7-18) Creatinine 0.6 MG/DL (0.55-1.30) Estimat Glomerular Filtration Rate > 60 mL/min (>60) Glucose Level 67 MG/DL (74-106) L Calcium Level 9.5 MG/DL (8.5-10.1) Phosphorus Level 4.4 MG/DL (2.5-4.9) Magnesium Level 1.4 MG/DL (1.8-2.4) L Total Bilirubin 0.5 MG/DL (0.2-1.0) Aspartate Amino Transf (AST/SGOT) 13 U/L (15-37) L Alanine Aminotransferase (ALT/SGPT) 25 U/L (12-78) Alkaline Phosphatase 80 U/L (46-116) C-Reactive Protein, Quantitative 28.0 mg/dL (0.00-0.90) H Total Protein 7.3 G/DL (6.4-8.2) Albumin 2.9 G/DL (3.4-5.0) L Globulin 4.4 g/dL Albumin/Globulin Ratio 0.7 (1.0-2.7) L TB Test (T-Spot) Pending TB Test Nil Control (T-Spot) Pending TB Test Panel A (T-Spot) Pending TB Test Panel B (T-Spot) Pending TB Test Positive Control (T-Spot) Pending Microbiology Date/Time Source Procedure Growth Status 03/21/20 16:06 Sputum Gram Stain - Final Resulted 03/21/20 16:06 Sputum Sputum Culture Pending Resulted 03/20/20 14:00 Urine,Clean Catch Urine Culture - Final Escherichia Coli Kocuria Species Complete 03/20/20 13:55 Rectum - Final NO CARBAPENEM-RESISTANT ENTEROBACTERI... Complete 03/20/20 13:55 Rectum VRE Culture - Final NO VANCOMYCIN RESISTANT ENTEROCOCCUS ... Complete 03/20/20 13:55 Nasal Nares MRSA Culture - Final NO METHICILLIN RESISTANT STAPH AUREUS... Complete 03/20/20 13:30 Blood Blood Culture - Preliminary NO GROWTH AFTER 48 HOURS Resulted 03/20/20 13:15 Blood Blood Culture - Preliminary NO GROWTH AFTER 48 HOURS Resulted 03/20/20 12:35 Nasopharynx SARS-CoV-2 RdRp Gene Assay - Final Complete Intake and Output 03/22/20 03/23/20 19:00 07:00 Output Total 800 ml 1000 ml Balance -800 ml -1000 ml Output Urine Total 800 ml 1000 ml # Voids 1 Objective PHYSICAL EXAMINATION: GENERAL: The patient is a well-developed and well-nourished female, in no apparent distress. HEENT: Eyes, pupils are equal and responsive to light and accommodation. Extraocular movements are intact. NECK: Supple without lymphadenopathy. CHEST: Diffuse wheezes bilaterally with decreased breath sounds in the right lower base, otherwise without wheezes or rales. CARDIOVASCULAR: Regular rhythm and rate. S1, S2 normal without murmurs, rubs, or gallops. ABDOMEN: Soft, nontender, nondistended. Positive bowel sounds. No evidence of hepatosplenomegaly. Currently, no rebound or guarding noted. EXTREMITIES: Negative for clubbing, cyanosis, or edema. RECTAL/GENITAL: Not performed. NEUROLOGIC: Cranial nerves II through XII are grossly intact without focal deficits. Assessment/Plan Assessment/Plan ASSESSMENT: This is an 85-year-old female with: 1. Bilateral pneumonia. 2. Cavitary Left upper lung mass. 3. Respiratory failure. 4. Diabetes type 2. 5. Hypertension. 6. Hypothyroidism 7. depression 8. UTI=E.coli and Kocuria sp TREATMENT: 1. Pneumonia/respiratory failure. Pulmonary consultation =Dr. Jessenia Biggs. Inf Disease=Dr Ferguson. Continue vancomycin and cefepime per ID 2. Left upper lung mass See CT scan of the chest results. Follow recommendations of Pulmonary. Await AFB cultures. Onc=Sheri 3. Diabetes. The patient has been placed on NovoLog sliding scale. 4. Hypertension, continue amlodipine as above. 5. Hypothyroidism. Continue Levoxyl as above. 6. Major depression. Continue mirtazapine as above. 7. ABX=vanco and cefepime Peterson Palacios MD Mar 23, 2020 11:12
[2020-03-23 12:00] VITALS: BP 124/62
--- NOTE | 2020-03-23 12:37 | Pulmonology Progress Note ---
Subjective ROS Limited/Unobtainable: No Constitutional: Reports: no symptoms HEENT: Repors: no symptoms Respiratory: Reports: no symptoms Allergies: Coded Allergies: PENICILLINS (Verified Allergy, Unknown, 03/20/20) RIFAXIMIN (Verified Allergy, Unknown, 03/20/20) SHELLFISH DERIVED (Verified Allergy, Unknown, 03/20/20) Objective Last 24 Hour Vital Signs Date Time Temp Pulse Resp B/P (MAP) Pulse Ox O2 Delivery O2 Flow Rate FiO2 03/23/20 09:00 Room Air 03/23/20 08:51 95 125/56 03/23/20 08:10 97 Nasal Cannula 3.0 32 03/23/20 08:10 95 18 97 Nasal Cannula 3.0 32 03/23/20 08:00 96 03/23/20 08:00 97.1 87 18 125/56 (79) 96 03/23/20 04:00 97.3 94 20 150/69 (96) 100 03/23/20 04:00 91 03/23/20 00:00 97.4 97 20 141/73 (95) 97 03/23/20 00:00 87 03/22/20 21:00 Room Air 03/22/20 20:00 101 03/22/20 20:00 98.5 98 20 137/72 (93) 98 03/22/20 19:23 98 Nasal Cannula 3.0 32 03/22/20 19:23 99 18 98 Room Air 3.0 32 03/22/20 16:00 97.9 80 20 149/74 (99) 93 03/22/20 16:00 106 Intake and Output 03/22/20 03/23/20 18:59 06:59 Output Total 800 ml 1000 ml Balance -800 ml -1000 ml Output Urine Total 800 ml 1000 ml # Voids 1 General Appearance: cachetic HEENT: normocephalic, atraumatic Respiratory: rhonchi - left, rhonchi - right Cardiovascular: normal peripheral pulses, normal rate Abdomen: normal bowel sounds, soft, non tender Genitourinary: normal external genitalia Extremities: no cyanosis Skin: no rash Neurologic: authors motivational II-XII grossly normal Microbiology Date/Time Source Procedure Growth Status 03/21/20 16:06 Sputum Gram Stain - Final Resulted 03/21/20 16:06 Sputum Sputum Culture Pending Resulted 03/20/20 14:00 Urine,Clean Catch Urine Culture - Final Escherichia Coli Kocuria Species Complete 03/20/20 13:55 Rectum - Final NO CARBAPENEM-RESISTANT ENTEROBACTERI... Complete 03/20/20 13:55 Rectum VRE Culture - Final NO VANCOMYCIN RESISTANT ENTEROCOCCUS ... Complete 03/20/20 13:55 Nasal Nares MRSA Culture - Final NO METHICILLIN RESISTANT STAPH AUREUS... Complete 03/20/20 13:30 Blood Blood Culture - Preliminary NO GROWTH AFTER 48 HOURS Resulted 03/20/20 13:15 Blood Blood Culture - Preliminary NO GROWTH AFTER 48 HOURS Resulted 03/20/20 12:35 Nasopharynx SARS-CoV-2 RdRp Gene Assay - Final Complete Laboratory Tests 03/22/20 12:47: White Blood Count 10.3, Red Blood Count 3.57L, Hemoglobin 11.0L, Hematocrit 34.4L, Mean Corpuscular Volume 96, Mean Corpuscular Hemoglobin 30.8, Mean Corpuscular Hemoglobin Concent 31.9L, Red Cell Distribution Width 14.9H, Platelet Count 243, Mean Platelet Volume 7.7, Neutrophils (%) (Auto) 75.5H, Lymphocytes (%) (Auto) 11.9L, Monocytes (%) (Auto) 7.5, Eosinophils (%) (Auto) 3.6H, Basophils (%) (Auto) 1.5, Lactate Dehydrogenase 174, Carcinoembryonic Antigen 26.2H, Blastomyces Ab Immunodiffusion [Pending], Coccidioides Antibody (Comp Fix) [Pending], Histoplasma Mycelial Antibody [Pending], Histoplasma Antibody w Mycelial Ag [Pending], Histoplasma Antibody with Yeast Ag [Pending], HIV (1&2) Antibody Rapid Negative 03/22/20 15:35: Aspergillus galactomannan Antigen [Pending], Beta-(1,3)-D-Glucan [Pending] 03/22/20 17:45: POC Whole Blood Glucose 83 03/23/20 05:50: White Blood Count 9.3, Red Blood Count 3.63L, Hemoglobin 11.5L, Hematocrit 33.2L , Mean Corpuscular Volume 91, Mean Corpuscular Hemoglobin 31.6H, Mean Corpuscular Hemoglobin Concent 34.5, Red Cell Distribution Width 15.5H, Platelet Count 249, Mean Platelet Volume 7.4, Neutrophils (%) (Auto) 73.1, Lymphocytes (%) (Auto) 14.3L, Monocytes (%) (Auto) 6.7, Eosinophils (%) (Auto) 5.2H, Basophils (%) (Auto) 0.7, Erythrocyte Sedimentation Rate 56H, Sodium Level 139, Potassium Level 3.0L, Chloride Level 100, Carbon Dioxide Level 30, Anion Gap 9, Blood Urea Nitrogen 7, Creatinine 0.6, Estimat Glomerular Filtration Rate > 60, Glucose Level 67L, Calcium Level 9.5, Phosphorus Level 4.4, Magnesium Level 1.4L , Total Bilirubin 0.5, Aspartate Amino Transf (AST/SGOT) 13L, Alanine Aminotransferase (ALT/SGPT) 25, Alkaline Phosphatase 80, C-Reactive Protein, Quantitative 28.0H, Total Protein 7.3, Albumin 2.9L, Globulin 4.4, Albumin/Globulin Ratio 0.7L, TB Test (T-Spot) [Pending], TB Test Nil Control (T- Spot) [Pending], TB Test Panel A (T-Spot) [Pending], TB Test Panel B (T-Spot) [Pending], TB Test Positive Control (T-Spot) [Pending] 03/23/20 11:30: POC Whole Blood Glucose [Pending] 03/23/20 11:42: M. tuberculosis Complex DNA (PCR) [Pending] Current Medications Medications (Trade) Dose Ordered Sig/Federico Route PRN Reason Start Time Stop Time Status Last Admin Dose Admin Acetaminophen (Tylenol) 650 mg Q4H PRN ORAL FEVER 03/20/20 16:45 04/19/20 16:44 Albuterol/ Ipratropium (Albuterol/ Ipratropium) 3 ml Q4H PRN HHN Shortness of Breath 03/20/20 16:45 03/25/20 16:44 03/21/20 23:38 Amlodipine Besylate (Norvasc) 10 mg DAILY ORAL 03/21/20 09:00 04/20/20 08:59 03/23/20 08:51 Barium Sulfate (Varibar Honey) 250 ml NOW PRN MC RAD 03/22/20 08:15 03/25/20 08:02 Barium Sulfate (Varibar [place]) 240 ml NOW PRN MC RAD 03/22/20 08:15 03/25/20 08:02 Barium Sulfate (Varibar Pudding) 230 ml NOW PRN RAD 03/22/20 08:15 03/25/20 08:02 Barium Sulfate (Varibar Thin Liquid powder) 148 gm NOW PRN RAD 03/22/20 08:15 03/25/20 08:02 Cefepime HCl 2 gm/ Dextrose 110 ml @ 220 mls/hr Q24H IV 03/21/20 09:00 03/28/20 08:59 03/23/20 08:50 Dextrose (Dextrose 50%) 25 ml Q30M PRN IV Hypoglycemia 03/20/20 16:45 06/18/20 16:44 Dextrose (Dextrose 50%) 50 ml Q30M PRN IV Hypoglycemia 03/20/20 16:45 06/18/20 16:44 Heparin Sodium (Porcine) (Heparin 5000 units/ml) 5,000 units EVERY 12 HOURS SUBQ 03/21/20 21:00 05/05/20 20:59 03/23/20 08:47 Insulin Aspart (NovoLOG) BEFORE MEALS AND HS SUBQ 03/21/20 06:30 06/19/20 06:29 Levothyroxine Sodium (Synthroid) 50 mcg ACBREAKFAST ORAL 03/21/20 06:30 04/20/20 06:29 03/23/20 06:14 Lorazepam (Ativan 2mg/ml 1ml) 2 mg Q2H PRN IV For Anxiety 03/20/20 16:45 03/27/20 16:44 Magnesium Oxide (Mag-Ox 400mg) 400 mg THREE TIMES A DAY ORAL 03/23/20 13:00 03/25/20 12:00 Mirtazapine (Remeron) 7.5 mg BEDTIME ORAL 03/20/20 21:00 06/18/20 20:59 03/22/20 21:00 Ondansetron HCl (Zofran) 4 mg Q6H PRN IVP Nausea & Vomiting 03/20/20 16:45 04/19/20 16:44 Polyethylene Glycol (Miralax) 17 gm DAILYPRN PRN ORAL Constipation 03/20/20 16:45 04/19/20 16:44 Potassium Chloride (K-Dur) 40 meq DAILY ORAL 03/23/20 11:15 03/25/20 12:00 12/2/20 11:25 Promethazine HCl/ Codeine (Phenergan with Codeine) 5 ml Q4H PRN ORAL For Cough 03/20/20 16:45 04/19/20 16:44 Sodium Chloride 1,000 ml @ 50 mls/hr Q20H IV 03/20/20 23:00 04/19/20 22:59 03/23/20 11:25 Vancomycin HCl (Vanco pharmacy to dose) 1 ea DAILY PRN MISC . 03/21/20 10:45 04/20/20 10:44 Vancomycin HCl 500 mg/Dextrose 110 ml @ 110 mls/hr Q12H IVPB 03/21/20 06:00 03/26/20 05:59 03/23/20 06:12 Assessment/Plan Problems: (1) Cavitary lung disease (2) Nosocomial pneumonia (3) Sepsis (4) COPD (chronic obstructive pulmonary disease) (5) UTI (urinary tract infection) (6) History of hypertension (7) Diabetes mellitus (8) Gout (9) Alzheimer's dementia (10) Hypothyroidism Assessment/Plan AFB and serology pendig on air borne isolation has been afebrile respiratory isolation ID evaluation appreciated broad spectrum antibiotics check sputum symptomatic treatment DVT prophylaxis Jessenia Biggs MD Mar 23, 2020 12:37
--- NOTE | 2020-03-23 13:00 | Diagnostic Imaging Report ---
Indication: Dyspnea Technique: One view of the chest Comparison: 03/20/2020 Findings: Previously demonstrated right basilar dense consolidation or atelectasis is no longer evident, right lung base now aerated, demonstrating hazy interstitial and airspace opacity. There is bilateral interstitial and airspace infiltrate versus edema diffusely, extent of which appears overall somewhat increased from the previous study. Previously demonstrated left upper lobe mass is less apparent, may be obscured by surrounding parenchymal consolidation Impression: Markedly improved aeration of the right lung base Overall increase in generalized interstitial and airspace disease bilaterally, over 3 days Previously demonstrated left upper lobe mass, also demonstrated on recent CT scan, is less apparent, probably obscured by surrounding infiltrate
[2020-03-23] MEDS: Magnesium Oxide 400mg tab ORAL SCH ×2 (13:47→18:36)
[2020-03-23 16:00] VITALS: BP 121/68
[2020-03-23 20:00] VITALS: BP 133/54
[2020-03-24] MEDS ORDERED: 1/2 NS 1000ml IV ONE (00:29)
[2020-03-24] MEDS ORDERED: Tubing IV Secondary IV ONE (00:29)
[2020-03-24] MEDS ORDERED: Vancomycin 750mg/NS 275ml IVPB SCH ×2 (06:00)
--- NOTE | 2020-03-24 06:22 | Emergency Room Report ---
Physical Exam Called for code blue. Patient apparently became bradycardic and when was evaluated had no pulses. Patient admitted for dyspnea with a question of cavitary lesion on x-ray. In addition there is some question about pulmonary embolus. Prior to my arrival 2 A of epinephrine were administered for PEA and asystole. Last 24 Hour Vital Signs Date Time Temp Pulse Resp B/P (MAP) Pulse Ox O2 Delivery O2 Flow Rate FiO2 03/23/20 21:00 Room Air 03/23/20 20:00 98.6 95 22 133/54 (80) 95 03/23/20 20:00 107 03/23/20 19:07 97 Nasal Cannula 3.0 32 03/23/20 16:00 98.1 80 19 121/68 (85) 96 03/23/20 16:00 90 03/23/20 12:00 97.2 83 20 124/62 (82) 96 03/23/20 12:00 99 03/23/20 09:00 Room Air 03/23/20 08:51 95 125/56 03/23/20 08:10 97 Nasal Cannula 3.0 32 03/23/20 08:10 95 18 97 Nasal Cannula 3.0 32 03/23/20 08:00 96 03/23/20 08:00 97.1 87 18 125/56 (79) 96 [id number] EP Interpretation: reviewed, abnormal - Interpreted as low by me General Appearance: other - Unresponsive, Chronically Ill Head: normocephalic, atraumatic Eyes: bilateral eye other - Pupils unreactive ENT: moist mucus membranes - Mucoid secretions in pharynx Neck: supple Respiratory: other - Assisted ventilations Cardiovascular #1: other - Pulses only with CPR Cardiovascular #2: 2+ femoral (R) Gastrointestinal: non-distended, decreased bowel sounds Musculoskeletal: other - Flaccid with extensor contractures lower extremities Neurologic: other - Unresponsive Psychiatric: other - Unresponsive Skin: Decubitus/Ulcer - Bilateral heels, other - Mottled and cool CPR/Code Blue CPR/Code Blue Narrative Patient with bradycardic and then asystolic arrest. Code called at 2347. Epi X2 before my arrival. CPR being performed by respiratory techs and supervised by me. The patient was intubated at 2355. After the third epinephrine the patient went into ventricular tachycardia. She was defibrillated twice with 200 W seconds with resultant PEA rhythm. She again went into ventricular fibrillation with a rate of 121 and was defibrillated with 200 W seconds. Resulting rhythm was PEA. Amiodarone 150 mg was given IV. Patient degenerated to V. fib and became asystolic. Epinephrine was repeated at this time. Results and rhythm was atrial fibrillation with PEA. Rate of 54. Epinephrine repeated at this time. Still with PEA. Calcium chloride 1 amp given. The patient was in PEA. This deteriorated to ventricular fibrillation. This was defibrillated with 100 W seconds. The patient returned to the atrial fibrillation. At this point it was felt that the patient demonstrated cardiopulmonary responsiveness possibly to pulmonary em bolus. The code was called. In checking pulses there were some brief pulses noted however these deteriorated to PEA again. The code was called and the patient was pronounced at 00 11. Intubation Intubation : Consent: Emergent Intubation Method: orotracheal Tube Size (cm): 7.5 Medications: Other - None Breath Sounds after Intubation: equal Intubation Complications: no complications Post Intubation Xray: No Attempts: One Patient Tolerated: Well Complications: None Medical Decision Making Diagnostic Impression: Primary Impression: Cardiopulmonary arrest ER Course Call to telemetry for cardiopulmonary arrest. Please see CODE BLUE and intubation report. Unsuccessful resuscitation with final rhythm of PEA. Patient pronounced 00:11. Rhythm Strip Diag. Results EP Interpretation: yes Rhythm: other - Atrial fibrillation, PA alternating with ventricular fibrillation, ventricular tachycardia various rates Status: worsened Disposition: Condition: Referrals: NON PHYSICIAN (PCP) Piotr Quiros MD Mar 24, 2020 06:22
--- NOTE | 2020-03-26 13:09 | Cardiology Report ---
APPROVED REPORT EKG Measurement Heart [id number] <Conclusion> Sinus tachycardia Right bundle branch block, plus right ventricular hypertrophy Abnormal ECG
--- NOTE | 2020-03-28 11:48 | Discharge Summary ---
Discharge Summary Discharge Summary _ SUMMARY DATE OF ADMISSION: 03/20/2020 DATE OF EXPIRATION: 03/24/2020 REASON FOR ADMISSION: 85 years old female, [facility], with past medical history of hypertension, asthma/COPD, gout, diabetes mellitus, hypothyroidism, dementia, was brought from the [facility] facility due to hypoxia. Paramedics placed her on nonrebreather mask and pulse oximetry went up to 97%.. She denied nausea but vomited x1 in the emergency room. She reported productive cough with colorless and thick phlegm. No sore throat. No nasal congestion. She denied chest pain. She denied diarrhea. No dysuria or flank pain. Patient denied fever and chills. Upon evaluation patient was tachycardic with heart rate 110 , tachypneic with respiratory rate 22 and hypoxic, requiring simple mask with O2 10 L/min. Laboratory work-up revealed significant leukocytosis with WBC 17.9, stable hemoglobin , hematocrit and platelet count. Stable electrolytes and renal parameters , glucose 208. Lactic acid 5 , repeated 6.9. Ferritin 1127 , LDH 154 , CRP 3.7 and D-dimer 0.353. Rapid COVID-19 in the emergency department was negative. EKG revealed sinus tachycardia with right bundle branch block. Chest x-ray revealed large right pleural effusion and extensive opacification right lower lobe. Urinalysis revealed +2 protein ,+1 glucose, +3 blood, +3 leukocyte esterase ,and many bacteria. In emergency department patient received fluid bolus Septic work-up initiated . Patient pancultured , started on empiric antibiotic and subsequently admitted for further management. CONSULTANTS: pulmonary Dr. Biggs ID specialist Dr. Ferguson bid writer/oncologist Dr. Roberts [facility] COURSE: Patient admitted to monitored floor. . CT of the chest revealed large mixed air filled cystic and solid mass in the left upper lobe. As much of the cystic component had thin angeles, this could represent a large bulla with a mural mass. Other possibilities include cavitary postinflammatory lesion from prior infection, active cavitary inflammatory lesion, cavitary neoplastic mass. Patient was kept in airborne isolation. AFB smear x3 was negative. Rapid HIV test was negative. Empiric vancomycin and cefepime continued. Fungal serology, along with TB test, MTB by PCR x 2, COVID by PCR were ordered Supplemental oxygen provided and titrated to keep pulse oximetry above 92% ; pulmonary toilet , including chest physical therapy provided . Patient was followed -up with chest x-ray. SNF medication resumed. DVT prophylaxis provided. Sputum culture initially was negative , and then showed MRSA. AFB smear negative x 3. COVID-19 by PCR was negative. Blood cultures were negative. Urine culture revealed E. coli. Antibiotic regimen optimized as per ID specialist recommendation. Leukocytosis resolved. no fever. Blood sugar was managed with sliding scale of insulin. Blood pressure was managed with calcium channel phoebe. Levothyroxine continued. Other home medication continued. Oncologist seen patient for lung mass in the left upper lobe and recommended to consider biopsy as well as await results of the fungal serology CODE BLUE was called on 122/ late night. Patient became bradycardic and then lost pulses. ACLS protocol initiated for PEA and asystole. Patient was intubated. Unfortunately all resuscitative efforts appeared to be futile. Patient was pronounced at 00:11 am in 03/24 Cause of : cardiopulmonary arrest FINAL DIAGNOSES: Status post cardiopulmonary arrest Acute hypoxemic respiratory failure requiring intubation Pulseless electrical activity Sepsis Nosocomial bilateral pneumonia Cavitary left upper lung mass UTI with E. coli Diabetes mellitus Hypertension Hypothyroidism Asthma/COPD Alzheimer dementia Gout Major depression I have been assigned to dictate discharge summary for this account. I was not involved in the patient's management. Lynne Torres NP Mar 28, 2020 11:48
== END 2020-03-24 00:30 | disposition expired | DRG 871 ==
LOC: EDBD 12:36 → EMR 13:04 → 2E 13:13 → EDBEDREQ 03-21 15:50 → 2E 03-22 02:03
PROC: 0BH17EZ Insertion of Endotracheal Airway into Trachea, Via Natural or Artificial Opening (ICD-10-PCS; principal; 2020-03-20)
DX: A41.9 Sepsis, unspecified organism (principal); J18.9 Pneumonia, unspecified organism; J96.01 Acute respiratory failure with hypoxia; N39.0 Urinary tract infection, site not specified; Z88.0 Allergy status to penicillin; Z88.8 Allergy status to other drugs, medicaments and biological substances; J44.9 Chronic obstructive pulmonary disease, unspecified; E11.9 Type 2 diabetes mellitus without complications; Z79.4 Long term (current) use of insulin; M10.9 Gout, unspecified; I10 Essential (primary) hypertension; F32.9 Major depressive disorder, single episode, unspecified; E03.9 Hypothyroidism, unspecified; Z66 Do not resuscitate; J98.4 Other disorders of lung; B96.20 Unspecified Escherichia coli [E. coli] as the cause of diseases classified elsewhere; G30.9 Alzheimer's disease, unspecified; F02.80 Dementia in other diseases classified elsewhere, unspecified severity, without behavioral disturbance, psychotic disturbance, mood disturbance, and anxiety; Y95 Nosocomial condition
CPT/HCPCS: 36415; 71045; 71250; 80048; 80053; 80202; 81003; 82378; 82550; 82728; 82962; 83605; 83615; 83690; 83735; 83880; 84100; 84484; 85007; 85025; 85379; 85610; 85651; 85730; 86140; 86171; 86580; 86612; 86635; 86703; 87040; 87070; 87081; 87086; 87116; 87181; 87205; 87385; 87449; 87556; 92950; 93005; 94640; 94664; 96361; 96365; 96368; 96375; 99291; J7030; J7620; J8499; U0002